=== PATIENT | female | born 1955 | race African-American/Black ===

== ENCOUNTER 2016-08-22 16:24 | Emergency (ER) | payer OTHER ==
[2016-08-22 16:36] VITALS: BP 155/105; PULSE 84; TEMP 97.6; BMI 26.2
[2016-08-22 17:30] LABS: URINE APPEARANCE CLEAR; URINE BILIRUBIN NEGATIVE (NEGATIVE); URINE BLOOD NEGATIVE (NEGATIVE); URINE COLOR LTYELLOW; URINE GLUCOSE (UA) NEGATIVE (NEGATIVE); URINE KETONE NEGATIVE (NEGATIVE); URINE LEUK ESTERASE NEGATIVE (NEGATIVE); URINE NITRITE NEGATIVE (NEGATIVE); URINE PROTEIN NEGATIVE (NEGATIVE); URINE UROBILINOGEN NEGATIVE E.U./dl (0.2-1.0)
--- NOTE | 2016-08-22 17:41 | PDOC ---
History of Present Illness - General Chief Complaint: Injury Stated Complaint: FALL/BACK PAIN Time Seen by Provider: 08/22/16 16:54 History Source: Patient Exam Limitations: No Limitations - History of Present Illness Initial Comments: 08/22/16 17:38 61 yr female with c/o low back coccyx pain to leg after fall 2 weeks ago. Pt states seh went to sit down in her chair at work that had rolled away and pt landed on the floor on her tailbone. Pt denies abd pain, no blood in urine or bowel. Pt taking naprosyn with no relief. Pt denies numbness or tingling states the pain is persistent. Occurred: reports: other (2 weeks ) Severity: reports: moderate Pain Location: reports: back Method of Injury: Yes: fall Past History - Past Medical History Allergies/Adverse Reactions: Allergies Allergy/AdvReac Type Severity Reaction Status Date / Time No Known Allergies Allergy Verified 08/22/16 16:36 Home Medications: Ambulatory Orders Aspirin [ASA -] 81 mg PO DAILY 11/23/14 Naproxen [Naprosyn -] 500 mg PO BID PRN #14 tablet 08/22/16 Oxycodone HCl/Acetaminophen [Percocet 5-325 mg Tablet] 1 tab PO Q6H PRN #10 tablet MDD 4 08/22/16 HTN: Yes (?) - Psycho/Social/Smoking Cessation Hx Anxiety: No Suicidal Ideation: No Smoking Status: No Smoking History: Never smoked Number of Cigarettes Smoked Daily: 0 Hx Alcohol Use: No Drug/Substance Use Hx: No Substance Use Type: None Hx Substance Use Treatment: No Review of Systems - Review of Systems Able to Perform ROS?: Yes Is the patient limited Fijian proficient: No Musculoskeletal: Yes: Symptoms Reported, See HPI *Physical Exam - Vital Signs Last Vital Signs Temp Pulse Resp BP Pulse Ox 97.6 F 84 20 155/105 100 08/22/16 16:34 08/22/16 16:34 08/22/16 16:34 08/22/16 16:34 08/22/16 16:34 - Physical Exam General Appearance: Yes: Nourished, Appropriately Dressed HEENT: positive: EOMI, RAY Neck: positive: Supple. negative: Tender Respiratory/Chest: positive: Lungs Clear, Normal Breath Sounds Cardiovascular: positive: Regular Rhythm, Regular Rate Gastrointestinal/Abdominal: positive: Normal Bowel Sounds, Soft Musculoskeletal: positive: Normal Inspection, Vertebral Tenderness (coccyx ) Integumentary: positive: Normal Color, Dry, Warm. negative: Ecchymosis, Bruising Neurologic: positive: Fully Oriented, Alert, Normal Mood/Affect, Normal Response , Motor Strength 12/10 ED Treatment Course - ADDITIONAL ORDERS Additional order review: Laboratory Results 08/22/16 17:00 Urine Color Ltyellow Urine Appearance Clear Urine pH 7.0 Ur Specific [place] 1.020 Urine Protein Negative Urine Glucose (UA) Negative Urine Ketones Negative Urine Blood Negative Urine Nitrite Negative Urine Bilirubin Negative Urine Urobilinogen Negative Ur Leukocyte Esterase Negative - RADIOLOGY Radiology Studies Ordered: Category Date Time Status COCCYX [RAD] Stat Radiology 08/22/16 17:27 Ordered SACRUM [RAD] Stat Radiology 08/22/16 17:27 Ordered Medical Decision Making - Medical Decision Making 08/22/16 17:40 cc: mechanical fall 2 weeks ago landed on tailbone will get xray and urine 08/22/16 18:37 pt states she has an orthopedist to follow up with urine is negative xray shows constipation, possible coccyx fracture will call pt with official read, pt is aware of plan and agrees with plan of care. all questions asked and answered on discharge. pt stable, ambualtory no distress. *DC/Admit/Observation/Transfer Diagnosis at time of Disposition: Coccyx contusion Qualifiers: Encounter type: initial encounter Qualified Code(s): S30.0XXA - Contusion of lower back and pelvis, initial encounter Constipation Qualifiers: Constipation type: other constipation type Qualified Code(s): K59.09 - Other constipation - Discharge Dispostion Disposition: HOME Condition at time of disposition: Good - Prescriptions Prescriptions: Naproxen [Naprosyn -] 500 mg PO BID PRN #14 tablet PRN Reason: Pain Oxycodone HCl/Acetaminophen [Percocet 5-325 mg Tablet] 1 tab PO Q6H PRN #10 tablet MDD 4 PRN Reason: Severe Pain - Patient Instructions Additional Instructions: follow with the orthopedist this week take percocet for severe pain DO NOT DRIVE, DRINK ALCOHOL OR OPERATE ANY MACHINERY WHILE TAKING THIS MEDICINE take naprosyn for mild to moderate pain apply ice to lower back every 2hrs for 20 minutes Get Dulcolax Laxative (over the counter) for constipation drink pleanty of water , high fiber diet
== END 2016-08-22 19:27 | disposition home or self-care (01) ==
LOC: JERFT 16:24
DX: S30.0XXA Contusion of lower back and pelvis, initial encounter (principal); W07.XXXA Fall from chair, initial encounter; Y93.89 Activity, other specified; Y92.214 College as the place of occurrence of the external cause; Y99.0 Civilian activity done for income or pay
CPT/HCPCS: 72220-TC; 81003; 99281-25

== ENCOUNTER 2016-09-15 05:40 | Day surgery (SDC) | payer OTHER ==
[2016-09-13 15:03] VITALS: BMI 26.4
--- NOTE | 2016-09-15 14:21 | HP ---
Admitting History and Physical - Admission Chief Complaint: Endometrial polyp History of Present Illness: 61 yo Par 4 with endometrial polyp is pre op for D&C Hysteroscopy. History Source: Patient Limitations to Obtaining History: No Limitations - Past Medical History ...Para: 4 - Past Surgical History Past Surgical History: Yes: None - Smoking History Smoking history: Never smoked Have you smoked in the past 12 months: No Aproximately how many cigarettes per day: 0 - Alcohol/Substance Use Hx Alcohol Use: No History of Substance Use: reports: None - Social History Usual Living Arrangement: Yes: With Child History of Recent Travel: No Home Medications - Allergies Allergies/Adverse Reactions: Allergies Allergy/AdvReac Type Severity Reaction Status Date / Time No Known Allergies Allergy Verified 09/15/16 13:48 - Home Medications Home Medications: Ambulatory Orders Aspirin [ASA -] 81 mg PO DAILY 11/23/14 Naproxen [Naprosyn -] 500 mg PO BID PRN #14 tablet 08/22/16 Oxycodone HCl/Acetaminophen [Percocet 5-325 mg Tablet] 1 tab PO Q6H PRN #10 tablet MDD 4 08/22/16 Cholecalciferol (Vitamin D3) [Vitamin D3 -] 1,000 unit PO DAILY 09/13/16 Multivit-Min/Iron Fum/Folic AC [Hjfmk-Xbkxvdy-Zhhgikgx Tablet] 1 each PO DAILY 09/13/16 Family Disease History - Family Disease History Family History: Unremarkable Review of Systems - Review of Systems Constitutional: reports: No Symptoms Eyes: reports: No Symptoms HENT: reports: No Symptoms Neck: reports: No Symptoms Cardiovascular: reports: No Symptoms Respiratory: reports: No Symptoms Gastrointestinal: reports: No Symptoms Genitourinary: reports: No Symptoms Breasts: reports: No Symptoms Reported Musculoskeletal: reports: No Symptoms Integumentary: reports: No Symptoms Neurological: reports: No Symptoms Endocrine: reports: No Symptoms Hematology/Lymphatic: reports: No Symptoms Psychiatric: reports: No Symptoms Pain Intensity: 0 Physical Examination Vital Signs: Vital Signs Temperature 97.5 F L 09/15/16 13:50 Pulse Rate 88 09/15/16 13:50 Respiratory Rate 16 09/15/16 13:50 Blood Pressure 126/78 09/15/16 13:50 O2 Sat by Pulse Oximetry (%) 99 09/15/16 13:50 Constitutional: Yes: Well Nourished HENT: Yes: Atraumatic Neck: Yes: Supple, Trachea Midline Cardiovascular: Yes: Regular Rate and Rhythm Respiratory: Yes: Regular, CTA Bilaterally Gastrointestinal: Yes: Normal Bowel Sounds Neurological: Yes: Alert, Oriented ...Motor Strength: WNL Psychiatric: Yes: Alert, Oriented Problem List - Problems (1) Endometrial polyp Code(s): N84.0 - POLYP OF CORPUS UTERI Assessment/Plan Endometrial polyp Pre op for D&C Hysteroscopy Consent signed Anesthesia to see Pt
[2016-09-15] MEDS ORDERED: KETOROLAC TROMETHAMINE 30 MG/1 ML VIAL ONE (14:41)
[2016-09-15] MEDS ORDERED: DEXAMETHASONE SOD PHOSPHATE 4 MG/1 ML VIAL ONE (14:41)
[2016-09-15] MEDS ORDERED: MIDAZOLAM HCL 2 MG/2 ML SINGLE DOSE VIAL ONE (14:41)
--- NOTE | 2016-09-15 15:40 | OP ---
Operative Note - Note: Operative Date: 09/15/16 Pre-Operative Diagnosis: Endometrial polyp Operation: D&C Hysteroscopy Findings: Submucosal myoma Post-Operative Diagnosis: Same as Pre-op Surgeon: Hannah Jaimes Anesthesia: General Specimens Removed: Endometrial curettings Estimated Blood Loss (mls): 5
[2016-09-15] MEDS ORDERED: oxyCODONE HCL 5 MG TABLET PO PRN ×2 (15:45)
[2016-09-15] MEDS ORDERED: PROMETHAZINE HCL 25 MG/1 ML VIAL IVPUSH PRN (15:45)
[2016-09-15] MEDS ORDERED: LACTATED RINGERS SOLUTION 1,000 ML IV SCH (15:45)
[2016-09-15] MEDS ORDERED: ONDANSETRON 4 MG/2 ML VIAL IVPUSH PRN (15:45)
[2016-09-15 17:21] VITALS: TEMP 97.8
[2016-09-15 18:18] VITALS: BP 120/80; PULSE 73
--- NOTE | 2016-09-17 09:50 | PATH ---
Surgical Pathology Report Patient Name: YA BREWSTER [facility]. Rec. #: [id number] /Age/Gender: 1955 (Age: 61) / F Account: [id number] Location: [facility] Taken: 09/15/2016 Received: 09/16/2016 Reported: 09/17/2016 Physicians: Hannah Jaimes M.D. Specimen(s) Received ENDOMETRIAL CURETTINGS Clinical History Endometrial polyp Final Diagnosis ENDOMETRIUM, CURETTING: SCANT INACTIVE ENDOMETRIUM, SCANT BENIGN SQUAMOUS EPITHELIUM, AND CLOTTED BLOOD. NO ENDOMETRIAL HYPERPLASIA OR CARCINOMA IDENTIFIED. Electronically Signed Lion Shelton M.D. Gross Description Received in formalin labelled "endometrial curetting" is a 1 x 1 x 0.3 cm aggregate of hemorrhagic material. Totally submitted in one cassette [facility]/09/16/2016 [facility]/09/16/2016
--- NOTE | 2016-10-19 21:18 | OP ---
DATE OF OPERATION: 09/15/2016 PREOPERATIVE DIAGNOSIS: Endometrial polyp. POSTOPERATIVE DIAGNOSIS: Submucosal myoma. SURGEON: Hannah Jaimes MD ANESTHESIA: General. PROCEDURE: Dilation and curettage, hysteroscopy. ESTIMATED BLOOD LOSS: Less than 5 mL. PROCEDURE: The patient was taken to the operating room, where general anesthesia was administered. Patient was then placed in lithotomy position. She was then prepped and draped in proper sterile fashion. A weighted speculum was placed in the vagina. The anterior lip of the cervix was grasped with a single-tooth tenaculum. Then a 5-mm hysteroscope was then gently introduced into the uterine cavity. There was no polyp noted but there was a submucosal myoma noted in the cavity. Then sharp curettage was then performed. Upon completion of the procedure, the instruments were removed. The patient was taken out of lithotomy position. She was taken to PACU in stable condition. PATHOLOGY: Endometrial curetting. Sheree TAYLOR/[id number] MTDD
== END 2016-09-15 18:48 | disposition home or self-care (01) ==
LOC: JASU-SURG 05:40
PROVIDERS: ATTEND Obstetrics & Gynecology
PROC: 0UDB8ZX Extraction of Endometrium, Via Natural or Artificial Opening Endoscopic, Diagnostic (ICD-10-PCS; principal; 2016-09-15 15:00)
DX: D25.0 Submucous leiomyoma of uterus (principal)
CPT/HCPCS: 88305-TC; 94760

== ENCOUNTER 2016-09-20 06:40 | Emergency (ER) | payer OTHER ==
[2016-09-20 07:01] VITALS: TEMP 97.5; BMI 26.2
--- NOTE | 2016-09-20 07:19 | PDOC ---
History of Present Illness - General Chief Complaint: Pain, Acute Stated Complaint: CRAMPING IN LEGS Time Seen by Provider: 09/20/16 07:18 History Source: Patient Exam Limitations: No Limitations - History of Present Illness Initial Comments: 09/20/16 07:19 CHIEF COMPLAINT: Cramping HISTORY OF PRESENT ILLNESS: This is a 61-year-old female with a history of D&C hysteroscopy on 09/[address] Jaimes who presents complaining of cramping in both of her legs, right more than left. She reports she has been having this cramping since her surgery. It is intermittent, not relieved or exacerbated by walking or rest, and seems to last for a few minutes at a time. She describes the pain as severe. She denies chest pain, shortness of breath, fevers/chills, or any other symptoms. She took two x ASA 81mg today with some relief. Vital signs on arrival are unremarkable. PCP is Dr. Gillette. REVIEW OF SYSTEMS: GENERAL/CONSTITUTIONAL: No fever or chills. No weakness. No weight change. CARDIOVASCULAR: No chest pain or palpitations. RESPIRATORY: No cough, wheezing, or shortness of breath. GASTROINTESTINAL: No nausea, vomiting, diarrhea or constipation. GENITOURINARY: No dysuria, frequency, or change in urination. MUSCULOSKELETAL: See HPI. SKIN: No rash or easy bruising. NEUROLOGIC: No headache, vertigo, loss of consciousness, or loss of sensation. PSYCHIATRIC: No depression or anxiety. ENDOCRINE: No increased thirst. No abnormal weight change. HEMATOLOGIC/LYMPHATIC: No anemia, easy bleeding, or history of blood clots. ALLERGIC/IMMUNOLOGIC: No hives or skin allergy. No latex allergy. PHYSICAL EXAM: GENERAL: The patient is awake, alert, and fully oriented, in no acute distress. ENT: Pupils equal, round and reactive to light, extraocular movements intact, sclera anicteric, conjunctiva clear. Neck supple. LUNGS: Clear to auscultation bilaterally. Normal excursion. No respiratory distress or use of accessory muscles. CV: RRR, S1/S2, no MRG. Cap refill < 2 sec. ABDOMEN: Soft, non-distended, non-tender. EXTREMITIES: Normal range of motion, no edema. Right calf tenderness, worse with flexion. NEUROLOGICAL: Normal speech, normal gait. CN II-XII grossly intact. PSYCH: Normal mood, normal affect. SKIN: Warm, dry, normal turgor, no rashes or lesions noted. Past History - Past Medical History Allergies/Adverse Reactions: Allergies Allergy/AdvReac Type Severity Reaction Status Date / Time No Known Allergies Allergy Verified 09/20/16 06:46 Home Medications: Ambulatory Orders Aspirin [ASA -] 81 mg PO DAILY 11/23/14 Naproxen [Naprosyn -] 500 mg PO BID PRN #14 tablet 08/22/16 Oxycodone HCl/Acetaminophen [Percocet 5-325 mg Tablet] 1 tab PO Q6H PRN #10 tablet MDD 4 08/22/16 Cholecalciferol (Vitamin D3) [Vitamin D3 -] 1,000 unit PO DAILY 09/13/16 Multivit-Min/Iron Fum/Folic AC [Qlqmz-Rpmvpkp-Lohwgrft Tablet] 1 each PO DAILY 09/13/16 Ibuprofen [Motrin -] 600 mg PO QID PRN #15 tablet 09/20/16 HTN: Yes (?) Thyroid Disease: No - Psycho/Social/Smoking Cessation Hx Anxiety: No Suicidal Ideation: No Smoking Status: No Smoking History: Never smoked Have you smoked in the past 12 months: No Number of Cigarettes Smoked Daily: 0 Information on smoking cessation initiated: No Hx Alcohol Use: No Drug/Substance Use Hx: No Substance Use Type: None Hx Substance Use Treatment: No *Physical Exam - Vital Signs Last Vital Signs Temp Pulse Resp BP Pulse Ox 97.5 F L 79 14 137/68 98 09/20/16 06:46 09/20/16 06:46 09/20/16 06:46 09/20/16 06:46 09/20/16 06:46 ED Treatment Course - LABORATORY CBC & Chemistry Diagram: 09/20/16 07:50 09/20/16 07:30 Medical Decision Making - Medical Decision Making 09/20/16 07:51 A/P: 61 year old female with leg cramping and right calf tenderness s/p surgery on 09/15. 1. Labs including CBC, comp, Mg 2. Duplex LE u/s to r/o DVT 3. Patient declines analgesia at this time 09/20/16 09:38 Labs including Mg are all within normal limits. U/s negative for DVT. Patient agrees to follow up with Dr. Gillette for further evaluation. *DC/Admit/Observation/Transfer Diagnosis at time of Disposition: Leg cramps Qualifiers: Laterality: bilateral Qualified Code(s): R25.2 - Cramp and spasm - Discharge Dispostion Admit: No - Prescriptions Prescriptions: Ibuprofen [Motrin -] 600 mg PO QID PRN #15 tablet PRN Reason: Pain - Referrals Referrals: Jayce Gillette MD [Primary Care Provider] - 3 days - Patient Instructions Printed Discharge Instructions: DI for Nocturnal Leg Cramps Additional Instructions: -You were seen today for leg cramps. -Your blood work is all normal. -Your leg ultrasounds are also normal -Take ibuprofen as prescribed for pain -Please follow up with Dr. Gillette for further evaluation -Return here for any new or worsening symptoms
[2016-09-20 07:58] LABS: BASOPHIL 0.9 % (0-2.0); EOSINOPHIL 2.8 % (0-4.5); MCH 29.1 pg (25.7-33.7); MCHC 33.3 g/dl (32.0-36.0); MEAN CELL VOLUME 87.4 fl (80-96); NEUTROPHILS 52.1 % (42.8-82.8); PLATELET COUNT 212 K/MM3 (134-434); RDW 13.8 % (11.6-15.6); WHITE BLOOD COUNT 6.4 K/mm3 (4.0-10.0)
[2016-09-20 08:27] LABS: ALBUMIN 3.5 g/dl (3.4-5.0); ALK PHOS 75 U/L (45-117); ANION GAP 8 (8-16); BILIRUBIN,TOTAL 0.3 mg/dL (0.2-1.0); CALCIUM 8.8 mg/dL (8.5-10.1); CO2 30 mmol/L (21-32); CREATININE 0.7 mg/dL (0.55-1.02); GLUCOSE,RANDOM 114 mg/dL (74-106); MAGNESIUM 2.4 mg/dL (1.8-2.4); SGOT/AST 14 U/L (15-37); SGPT/ALT 17 U/L (12-78); TOT PROT 7.2 g/dl (6.4-8.2)
[2016-09-20 10:11] VITALS: BP 129/78; PULSE 72
== END 2016-09-20 10:15 | disposition home or self-care (01) ==
LOC: JER 06:40
DX: R25.2 Cramp and spasm (principal); Z98.890 Other specified postprocedural states
CPT/HCPCS: 36415; 80053; 83735; 85025; 93970-TC; 99282-25

== ENCOUNTER → 2016-11-13 | Emergency (ER) | payer OTHER ==
[~2016-11-13] MED LIST: ASPIRIN 81 MG CHEWABLE TABLETS ONE; ASPIRIN 81 MG CHEWABLE TABLETS PO ONE; DEXTROSE 50%-WATER 50 ML VIAL IVPUSH ONE
[2016-11-13 01:33] VITALS: BMI 26.2
--- NOTE | 2016-11-13 01:52 | PDOC ---
History of Present Illness - General History Source: Patient Exam Limitations: No Limitations - History of Present Illness Initial Comments: 11/13/16 02:11 The patient is a 61 year old female with a significant past medical history of hypertension (diet controlled), presenting to the Emergency Department with chest discomfort. The patient reports that she started experiencing chest discomfort th night, and admits that it has become worse over the past 24 hours. She describes the chest discomfort as at the middle of her chest. The discomfort is not exacerbated by meals. The patient admits to recently having an echocardiogram, and is going for a stress test soon. The patient denies palpitations, diaphoresis, and shortness of breath. Patient denies cough, fever, and chills. Patient denies nausea, vomiting, and diarrhea. Patient denies neck pain, or back pain. <Olga Mendez - Last Filed: 11/13/16 02:11> <Zohreh Monte - Last Filed: 11/13/16 05:01> - General Stated Complaint: CHEST DISCOMFORT Time Seen by Provider: 11/13/16 01:21 Past History <Olga Mendez - Last Filed: 11/13/16 02:11> - Past Medical History HTN: Yes (?) Thyroid Disease: No - Psycho/Social/Smoking Cessation Hx Anxiety: No Suicidal Ideation: No Smoking Status: No Smoking History: Unknown if ever smoked Have you smoked in the past 12 months: No Number of Cigarettes Smoked Daily: 0 Hx Alcohol Use: No Drug/Substance Use Hx: No Substance Use Type: None Hx Substance Use Treatment: No <Zohreh Monte - Last Filed: 11/13/16 05:01> - Past Medical History Allergies/Adverse Reactions: Allergies Allergy/AdvReac Type Severity Reaction Status Date / Time No Known Allergies Allergy Verified 09/20/16 06:46 Home Medications: Ambulatory Orders Aspirin [ASA -] 81 mg PO DAILY 11/23/14 Naproxen [Naprosyn -] 500 mg PO BID PRN #14 tablet 08/22/16 Oxycodone HCl/Acetaminophen [Percocet 5-325 mg Tablet] 1 tab PO Q6H PRN #10 tablet MDD 4 08/22/16 Cholecalciferol (Vitamin D3) [Vitamin D3 -] 1,000 unit PO DAILY 09/13/16 Multivit-Min/Iron Fum/Folic AC [Myhbl-Vamvttj-Zmcaexbu Tablet] 1 each PO DAILY 09/13/16 Ibuprofen [Motrin -] 600 mg PO QID PRN #15 tablet 09/20/16 Review of Systems - Review of Systems Able to Perform ROS?: Yes Comments:: 11/13/16 02:11 GENERAL/CONSTITUTIONAL: No fever or chills. No weakness. HEAD, EYES, EARS, NOSE AND THROAT: No change in vision. No ear pain or discharge. No sore throat. CARDIOVASCULAR: + chest discomfort. No shortness of breath. RESPIRATORY: No cough, wheezing, or hemoptysis. GASTROINTESTINAL: No nausea, vomiting, diarrhea or constipation. GENITOURINARY: No dysuria, frequency, or change in urination. MUSCULOSKELETAL: No joint or muscle swelling or pain. No neck or back pain. SKIN: No rash NEUROLOGIC: No headache, vertigo, loss of consciousness, or change in strength/ sensation. ENDOCRINE: No increased thirst. No abnormal weight change. HEMATOLOGIC/LYMPHATIC: No anemia, easy bleeding, or history of blood clots. ALLERGIC/IMMUNOLOGIC: No hives or skin allergy. <Olga Mendez - Last Filed: 11/13/16 02:11> *Physical Exam - Vital Signs Last Vital Signs Temp Pulse Resp BP Pulse Ox 98.6 F 90 22 130/82 97 11/13/16 01:29 11/13/16 01:29 11/13/16 01:29 11/13/16 01:29 11/13/16 01:29 - Physical Exam Comments: 11/13/16 02:11 GENERAL: Awake, alert, and fully oriented, in no acute distress HEAD: No signs of trauma EYES: PERRLA, EOMI, sclera anicteric, conjunctiva clear ENT: Auricles normal inspection, hearing grossly normal, nares patent, oropharynx clear without exudates. Moist mucosa NECK: Normal ROM, supple, no lymphadenopathy, JVD, or masses LUNGS: Breath sounds equal, clear to auscultation bilaterally. No wheezes, and no crackles HEART: Regular rate and rhythm, normal S1 and S2, no murmurs, rubs or gallops ABDOMEN: Soft, nontender, normoactive bowel sounds. No guarding, no rebound. No masses EXTREMITIES: Normal range of motion, no edema. No clubbing or cyanosis. No cords, erythema, or tenderness NEUROLOGICAL: Cranial nerves II through XII grossly intact. Normal speech, normal gait SKIN: Warm, Dry, normal turgor, no rashes or lesions noted. <Olga Mendez - Last Filed: 11/13/16 02:11> - Vital Signs Last Vital Signs Temp Pulse Resp BP Pulse Ox 98.6 F 90 22 130/82 97 11/13/16 01:29 11/13/16 01:29 11/13/16 01:29 11/13/16 01:29 11/13/16 01:29 <Zohreh Monte - Last Filed: 11/13/16 05:01> ED Treatment Course - Medications Given in the ED: ED Medications Discontinued Medications Generic Name Dose Route Start Last Admin Trade Name Ofelia PRN Reason Stop Dose Admin Dextrose 50 ml 11/13/16 01:22 11/13/16 01:57 D50w (Vial) - IVPUSH 11/13/16 01:23 Not Given NOW ONE Dextrose 50 ml 11/13/16 01:22 11/13/16 01:57 D50w (Vial) - IVPUSH 11/13/16 01:23 Not Given NOW ONE <Olga Mendez - Last Filed: 11/13/16 02:11> - LABORATORY CBC & Chemistry Diagram: 11/13/16 02:42 11/13/16 02:42 <Zohreh Monte - Last Filed: 11/13/16 05:01> *DC/Admit/Observation/Transfer - Attestations Scribe Attestion: 11/13/16 02:12 Documentation prepared by Olga Mendez, acting as ophthalmic medical technologist for Zohreh Monte MD. <Olga Mendez - Last Filed: 11/13/16 02:11> - Discharge Dispostion Admit: No <Zohreh Monte - Last Filed: 11/13/16 05:01> Diagnosis at time of Disposition: Chest pain - Discharge Dispostion Disposition: HOME Condition at time of disposition: Stable - Referrals Referrals: Jayce Gillette MD [Primary Care Provider] - - Patient Instructions Printed Discharge Instructions: DI for Atypical Chest Pain
[2016-11-13 02:54] LABS: BASOPHIL 0.5 % (0-2.0); EOSINOPHIL 1.8 % (0-4.5); MCHC 33.4 g/dl (32.0-36.0); MEAN PLT VOLUME 8.6 fl (7.5-11.1); NEUTROPHILS 55.2 % (42.8-82.8); PLATELET COUNT 228 K/MM3 (134-434); RDW 13.9 % (11.6-15.6); WHITE BLOOD COUNT 7.6 K/mm3 (4.0-10.0)
[2016-11-13 03:08] LABS: INR 1.04 (0.82-1.09); PROTHROMBIN TIME (PATIENT) 11.5 SEC (9.98-11.88)
[2016-11-13 03:19] LABS: ALBUMIN 3.5 g/dl (3.4-5.0); ANION GAP 10 (8-16); BILIRUBIN,TOTAL 0.2 mg/dL (0.2-1.0); CALCIUM 8.7 mg/dL (8.5-10.1); CO2 28 mmol/L (21-32); COCKROFT - GAULT 95.4805; CREATININE 0.7 mg/dL (0.55-1.02); GLUCOSE,RANDOM 120 mg/dL (74-106); SGOT/AST 10 U/L (15-37); SGPT/ALT 18 U/L (12-78); TOT PROT 7.3 g/dl (6.4-8.2)
[2016-11-13 03:21] LABS: ALK PHOS 86 U/L (45-117); TROPONIN I < 0.02 ng/ml (0.00-0.05)
[2016-11-13 05:17] VITALS: BP 129/79; PULSE 76; TEMP 98.9
--- NOTE | 2016-11-13 16:19 | EKG ---
Test Reason : Blood Pressure : / mmHG Vent. Rate : 090 BPM Atrial Rate : 090 BPM P-R Int : 196 ms QRS Dur : 084 ms QT Int : 350 ms P-R-T Axes : 065 016 047 degrees QTc Int : 428 ms SINUS RHYTHM WITH PREMATURE ATRIAL COMPLEXES WITH ABERRANT CONDUCTION POSSIBLE ANTERIOR INFARCT , AGE UNDETERMINED ABNORMAL ECG WHEN COMPARED WITH ECG OF 23-NOV-2014 07:50, ABERRANT CONDUCTION IS NOW PRESENT Confirmed by ANU ALBERTS, ANG ([id number]) on 11/13/2016 4:19:39 PM Referred By: Confirmed By:ANG BRENNAN MD
== END | disposition home or self-care (01) ==
LOC: JER 00:58
DX: R07.89 Other chest pain (principal); I10 Essential (primary) hypertension
CPT/HCPCS: 36415; 71010-TC; 80053; 82550; 84484; 85025; 85610; 93005; 93010; 99282-25

== ENCOUNTER 2017-02-02 14:02 | Emergency (ER) | payer OTHER ==
[2017-02-02 14:15] VITALS: BP 154/89; PULSE 76; TEMP 97.6; BMI 25.7
[2017-02-02] MEDS ORDERED: KETOROLAC TROMETHAMINE 60 MG/2 ML VIAL IM ONE (15:04)
[2017-02-02] MEDS ORDERED: KETOROLAC TROMETHAMINE 60 MG/2 ML VIAL ONE (15:06)
--- NOTE | 2017-02-02 15:33 | PDOC ---
History of Present Illness - General Chief Complaint: Pain Stated Complaint: NECK PAIN,JOINT PAIN Time Seen by Provider: 02/02/17 14:27 History Source: Patient Exam Limitations: No Limitations - History of Present Illness Initial Comments: 02/02/17 15:10 Patient is a 62-year-old female with history of low back injury status post fall. Patient was at work in August got up from a chair when she went to sit back down the chair rolled away and she fell on her back. Diagnosed with herniated disc to lower back. Presents emergency department today with bilateral lateral neck pain which started 2 days ago woke up with pain. Patient reports numbness and tingling to bilateral hands which has been since August. Patient is ambulatory to ER. Is currently taking diclofenac and Tinazidine. She denies any chest pain or shortness of breath, afebrile, denies any new trauma. Past Medical History: Denies. Allergies: No known allergies Medications: Diclofenac, Tinazidine. Family History: Non-contributory Social History: Denies smoking, alcohol use, or IVDU Review of Systems GENERAL/CONSTITUTIONAL: No fever or chills. No weakness. No weight change. HEAD, EYES, EARS, NOSE AND THROAT: No change in vision. No ear pain or discharge. No sore throat. CARDIOVASCULAR: No chest pain or shortness of breath. RESPIRATORY: No cough, wheezing, or hemoptysis. GASTROINTESTINAL: No nausea, vomiting, diarrhea or constipation. No rectal bleeding. GENITOURINARY: No dysuria, frequency, or change in urination. MUSCULOSKELETAL: No joint or muscle swelling or pain. Bilateral lateral neck pain, chronic back pain. SKIN: No rash or easy bruising. NEUROLOGIC: No headache, vertigo, loss of consciousness, or loss of sensation. ENDOCRINE: No increased thirst. No abnormal weight change. HEMATOLOGIC/LYMPHATIC: No anemia, easy bleeding, or history of blood clots. ALLERGIC/IMMUNOLOGIC: No hives or skin allergy. No latex allergy. Physical Exam: GENERAL: The patient is awake, alert, and fully oriented, in no acute distress. HEAD: Normal with no signs of trauma. EYES: Pupils equal, round and reactive to light, extraocular movements intact, sclera anicteric, conjunctiva clear. ENT: Ears normal, nares patent, oropharynx clear without exudates. Moist mucous membranes. No uvula deviation NECK: Normal range of motion, supple without lymphadenopathy, JVD, or masses. LUNGS: Breath sounds equal, clear to auscultation bilaterally. No wheezes, and no crackles. HEART: Regular rate and rhythm, normal S1 and S2 without murmur, rub or gallop. ABDOMEN: Soft, nontender, normoactive bowel sounds. No guarding, no rebound. No masses. No bruising or abrasions MUSCULOSKELETAL: Normal range of motion, no edema. No clubbing or cyanosis. No cords, erythema, or tenderness. No CVA Tenderness with fist palpation. No spinal point tenderness, pain, tight muscles to bilateral neck. NEUROLOGICAL: Cranial nerves II through XII grossly intact. Normal speech, normal gait. SKIN: Warm, Dry, normal turgor, no rashes or lesions noted. Past History - Past Medical History Allergies/Adverse Reactions: Allergies Allergy/AdvReac Type Severity Reaction Status Date / Time No Known Allergies Allergy Verified 02/02/17 14:15 Home Medications: Ambulatory Orders Aspirin [ASA -] 81 mg PO DAILY 11/23/14 Diclofenac Sodium 75 mg PO BID 02/02/17 Tizanidine HCl [Zanaflex] 4 mg PO BID 02/02/17 HTN: No (DENIES) Thyroid Disease: No - Psycho/Social/Smoking Cessation Hx Anxiety: No Suicidal Ideation: No Smoking Status: No Smoking History: Never smoked Have you smoked in the past 12 months: No Number of Cigarettes Smoked Daily: 0 Hx Alcohol Use: No Drug/Substance Use Hx: No Substance Use Type: None Hx Substance Use Treatment: No *Physical Exam - Vital Signs Last Vital Signs Temp Pulse Resp BP Pulse Ox 97.6 F 76 20 154/89 100 02/02/17 14:11 02/02/17 14:11 02/02/17 14:11 02/02/17 14:11 02/02/17 14:11 ED Treatment Course - RADIOLOGY Radiology Studies Ordered: Category Date Time Status SPINE-CERVICAL [RAD] Stat Radiology 02/02/17 15:04 Ordered Medical Decision Making - Medical Decision Making 02/02/17 15:33 A/P: Patient with bilateral lateral neck pain. Patient denies any new recent trauma, states that she had minor pain after falling in August but woke up 2 days ago with increased pain. Patient has persistent bilateral numbness and tingling to hands however spoke to patient's primary care doctor Dr. Santamaria who assessed her chart and states that she never had workup performed on neck. Dr. Santamaria stated that patient is new to his practice has only been seen twice and it does not recollect speaking to her regards to neck pain. Patient has been on diclofenac without resolve. Discussed with Dr. blake of care , will perform x-rays in ER, Toradol 60 mg IM. Follow-up on Tuesday at 9:30 AM for further evaluation 02/02/17 15:57 Xray Demonstrated a right cervical rib at C7. Scattered Dr. Santamaria who will possibly order MRI if pain persists. Patient to be discharged home on anti- inflammatories and current pain regimen. She verbalized understanding. I discussed the physical exam findings, ancillary test results and final diagnoses with the patient. I answered all of the patient's questions. The patient was satisfied with the care received and felt comfortable with the discharge plan and treatment plan. The patient sita follow-up and will return to the Emergency Department with any new, persistent or worsening symptoms. 02/02/17 17:07 *DC/Admit/Observation/Transfer Diagnosis at time of Disposition: Neck pain - Discharge Dispostion Disposition: HOME Condition at time of disposition: Stable Admit: No - Referrals Referrals: Mayito Santamaria [Other] (9:00 Am on Tuesday. ) - Patient Instructions Printed Discharge Instructions: Neck Pain (Alternative Therapy) Additional Instructions: A copy of your xray has been given to you, please follow-up with your doctor Dr. Santamaria on Tuesday at 9 AM. Continue current medications as prescribed for pain.
== END 2017-02-02 16:25 | disposition home or self-care (01) ==
LOC: JERFT 14:02
PROC: 3E0233Z Introduction of Anti-inflammatory into Muscle, Percutaneous Approach (ICD-10-PCS; principal; 2017-02-02)
DX: M54.2 Cervicalgia (principal)
CPT/HCPCS: 72050-TC; 99281-25

== ENCOUNTER 2017-03-19 19:08 | Observation (INO) | payer OTHER ==
--- NOTE | 2017-03-19 19:19 | PDOC ---
History of Present Illness - General Stated Complaint: FODD IN THROAT Time Seen by Provider: 03/19/17 19:18 - History of Present Illness Initial Comments: 03/19/17 19:54 62F presenting with sensation of something stuck in her throat. Pt reports choking on the shell of shrimp 45 minutes ago. She coughed up some of it, but now feels a lump in her throat. She reports forcing herself to vomit, but it did not relieve her feeling. She denies the need to cough, any pain, or SOB. 03/19/17 20:01 Past History - Past Medical History Allergies/Adverse Reactions: Allergies Allergy/AdvReac Type Severity Reaction Status Date / Time No Known Allergies Allergy Verified 02/02/17 14:15 Home Medications: Ambulatory Orders Aspirin [ASA -] 81 mg PO DAILY 11/23/14 Diclofenac Sodium 75 mg PO BID 02/02/17 Tizanidine HCl [Zanaflex] 4 mg PO BID 02/02/17 HTN: No (DENIES) Thyroid Disease: No Comment:: 03/19/17 19:57 PMH: kidney cyst, injury s/p fall PSH: none Meds: diclofenac, tizanidine Allergies: NKDA Social Hx: denies toxic habits - Psycho/Social/Smoking Cessation Hx Anxiety: No Suicidal Ideation: No Smoking Status: No Smoking History: Never smoked Have you smoked in the past 12 months: No Number of Cigarettes Smoked Daily: 0 Hx Alcohol Use: No Drug/Substance Use Hx: No Substance Use Type: None Hx Substance Use Treatment: No Review of Systems - Review of Systems Comments:: 03/19/17 19:58 GENERAL: No fever, chills, night sweats, or weakness. HEAD, EYES, EARS, NOSE AND THROAT: +feeling of something stuck in throat CARDIOVASCULAR: No chest pain or palpitations RESPIRATORY: No cough, wheezing, or hemoptysis. GASTROINTESTINAL: No nausea, diarrhea, constipation, or blood in the stool. GENITOURINARY: No dysuria, frequency, or urgency MUSCULOSKELETAL: No joint or muscle swelling or pain. SKIN: No rashes or pruritis ENDOCRINE: No increased thirst. No abnormal weight change NEUROLOGIC: No headache, dizziness, loss of consciousness, or change in strength /sensation. *Physical Exam - Physical Exam Comments: 03/19/17 19:59 GENERAL: Awake, alert, and fully oriented, in mild distress HEAD: normocephalic, atraumatic HEENT: PERRLA, EOMI, oropharynx difficult to visualize due to large tongue, but no foreign bodies visible NECK: Normal ROM, supple, no lymphadenopathy, JVD, or masses HEART: Regular rate and rhythm, normal S1 and S2, no murmurs, rubs or gallops, peripheral pulses normal and equal bilaterally. LUNGS: CTAB, no wheezing, no rales ABDOMEN: Soft, nontender, nondistended, normoactive bowel sounds. No guarding, no rebound. No masses EXTREMITIES: Normal range of motion, no edema. SKIN: Warm, dry, no rashes or lesions noted. NEUROLOGICAL: Cranial nerves II through XII grossly intact. Normal speech, normal gait, no focal sensorimotor deficits ED Treatment Course - LABORATORY CBC & Chemistry Diagram: 03/19/17 20:30 03/19/17 20:30 Medical Decision Making - Medical Decision Making 03/19/17 20:01 03/19/17 20:02 62F presenting with sensation of something stuck in her throat. differential includes foreign body vs. oropharynx irritation. 03/19/17 20:05 *DC/Admit/Observation/Transfer Diagnosis at time of Disposition: Throat swelling - Discharge Dispostion Condition at time of disposition: Stable Admit: Yes Decision to Admit order Date/Time: 03/19/17 23:10 - Attestations Physician Attestion: 03/19/17 23:11 I, Dr. Bethel Taylor, attest that this document has been prepared under my direction and personally reviewed by me in its entirety. I further attest, that it accurately reflects all work, treatment, procedures and medical decision -making performed by me.
--- NOTE | 2017-03-19 19:22 | PDOC ---
Attending Attestation - Resident Resident Name: FrankmichaelBethel - ED Attending Attestation I have performed the following: I have examined & evaluated the patient, The case was reviewed & discussed with the resident, I agree w/resident's findings & plan, Exceptions are as noted - HPI HPI: 62 yo F presents with FB sensation to throat. She states that before the symptoms started, she was eating a piece of shrimp. She states that she forced herself to vomit to try to remove it, which did not help. She has been spitting up phlegm in the ED. She notes changes to her voice due to the sensation in her throat. - Physicial Exam PE: GENERAL: Awake, alert, and fully oriented, in no acute distress HEAD: No signs of trauma EYES: PERRLA, EOMI, sclera anicteric, conjunctiva clear ENT: Auricles normal inspection, hearing grossly normal, nares patent, oropharynx clear without exudates. Moist mucosa. +Muffling of the voice. NECK: Normal ROM, supple, no lymphadenopathy, JVD, or masses LUNGS: Breath sounds equal, clear to auscultation bilaterally. No wheezes, and no crackles HEART: Regular rate and rhythm, normal S1 and S2, no murmurs, rubs or gallops ABDOMEN: Soft, nontender, normoactive bowel sounds. No guarding, no rebound. No masses EXTREMITIES: Normal range of motion, no edema. No clubbing or cyanosis. No cords, erythema, or tenderness NEUROLOGICAL: Cranial nerves II through XII grossly intact. Normal speech, normal gait SKIN: Warm, Dry, normal turgor, no rashes or lesions noted. - Medical Decision Making 03/19/17 21:14 Difficult to visualize the oropharynx due to patient anatomy. Therefore she was pretreated with viscous lidocaine swish and swallow, as well as cetacaine topically. Attempted to visualize the oropharynx with glidescope, noted that the uvula appeared enlarged. This may possibly be angioedema (however, no known allergens, no TIKA-inhibitors), or may be related to trauma when she self- induced her vomiting. Will treat with steroids. Will obtain CT soft tissue neck to further evaluate.
[2017-03-19 19:27] VITALS: BMI 25.7
[2017-03-19] MEDS ORDERED: MAG HYDROX/AL HYDROX/SIMETH 30 ML UNIT-DOSE CUP PO ONE (19:51)
[2017-03-19] MEDS ORDERED: LIDOCAINE VISCOUS 2% ORAL/TOP 20 ML UNIT-DOSE CUP MM ONE (19:51)
[2017-03-19] MEDS ORDERED: MAG HYDROX/AL HYDROX/SIMETH 30 ML UNIT-DOSE CUP ONE (19:54)
[2017-03-19] MEDS ORDERED: DEXAMETHASONE SOD PHOSPHATE 10 MG/1 ML VIAL IVPB ONE (20:23)
[2017-03-19] MEDS ORDERED: DEXAMETHASONE SOD PHOSPHATE 10 MG/1 ML VIAL ONE (20:32)
[2017-03-19 20:35] LABS: BASOPHIL 0.8 % (0-2.0); MCH 29.1 pg (25.7-33.7); MCHC 33.2 g/dl (32.0-36.0); MEAN CELL VOLUME 87.6 fl (80-96); MEAN PLT VOLUME 8.5 fl (7.5-11.1); PLATELET COUNT 235 K/MM3 (134-434); WHITE BLOOD COUNT 8.1 K/mm3 (4.0-10.0)
[2017-03-19 20:59] LABS: ANION GAP 5 (8-16); CALCIUM 9.4 mg/dL (8.5-10.1); CO2 31 mmol/L (21-32); CREATININE 0.9 mg/dL (0.55-1.02); GLUCOSE,RANDOM 128 mg/dL (74-106)
[2017-03-19] MEDS ORDERED: ONDANSETRON 4 MG/2 ML VIAL IVPB PRN (23:43)
--- NOTE | 2017-03-19 23:43 | HP ---
Admitting History and Physical - Admission Chief Complaint: FB sensation in throat History of Present Illness: 62 yo f w no significant pmhx presents to the ER for evaluation of FB sensation in throat. She reports around 530P today that she ate a piece of shrimp which got stuck in her throat. she tried to vomit it up but had problems evacuating it. she reports some difficulty breathing at that time. She reports still feeling like something is in her throat. She denies allergies to shrimp. She denies cough, wheezing, cp, heart palps, f/c/d/n. She denies numbness, tingling. She reports neck and lower back pain from a fall at work. 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, rec drugs Famhx- Mom- MM, Dad- CVA Ros neg except for hpi Pex Gen- in nad, alert Resp- no cough, no ronchi, no stridor, lungs ctab, no cyanosis, speaking in full sentences Cards- s1s2 heard, no JVD, no leg edema, RRR Skin- dry, warm, clean Psych- Cooperative, no agitation neuro- cn2-12 grossly intact, no seizures, no facial droop, speech clear hent- at/nc, mohit, neck supple, trachea midline, uvula slight swollen Gi- soft non-tender, no guarding, no rebound, no rigidity Musk- normal arom bue/ble Prob list FB in throat a/p- 62 yo f w no significant pmhx presents to the ER for evaluation of FB sensation in throat placed in obs 1. FB sensation in throat Pt reports a piece of shrimp got stuck in throat CT of neck negative for acute process Given 1 dose of IV dexamethasone in the ER Monitor Airway q 4hours 2. Neck and lower back pain Reports fall at work Pain control; Tylenol, Zanaflex Dvt prophy expect less than 24 hour stay oob fen reg diet dispo- obs for fb sensation in throat. ok for dc in am if asymptomatic History Source: Patient Limitations to Obtaining History: No Limitations - Past Surgical History Past Surgical History: Yes: None - Smoking History Smoking history: Never smoked Have you smoked in the past 12 months: No Aproximately how many cigarettes per day: 0 - Alcohol/Substance Use Hx Alcohol Use: No History of Substance Use: reports: None - Social History History of Recent Travel: No Home Medications - Allergies Allergies/Adverse Reactions: Allergies Allergy/AdvReac Type Severity Reaction Status Date / Time No Known Allergies Allergy Verified 02/02/17 14:15 - Home Medications Home Medications: Ambulatory Orders Aspirin [ASA -] 81 mg PO DAILY 11/23/14 Diclofenac Sodium 75 mg PO BID 02/02/17 Tizanidine HCl [Zanaflex] 4 mg PO BID 02/02/17 Physical Examination Vital Signs: Vital Signs Temperature 98.7 F 03/19/17 19:21 Pulse Rate 94 H 03/19/17 19:21 Respiratory Rate 16 03/19/17 19:21 Blood Pressure 154/72 03/19/17 19:21 O2 Sat by Pulse Oximetry (%) 98 03/19/17 19:21 Labs: CBC, BMP 03/19/17 20:30 03/19/17 20:30 Visit type - Emergency Visit Emergency Visit: Yes ED Registration Date: 03/19/17 Care time: The patient presented to the Emergency Department on the above date and was hospitalized for further evaluation of their emergent condition. - New Patient This patient is new to me today: Yes Date on this admission: 03/20/17 - Critical Care Critical Care patient: No
[2017-03-19] MEDS ORDERED: CYCLOBENZAPRINE HCL 10 MG TABLET (FP) PO PRN (23:44)
[2017-03-20] MEDS: ACETAMINOPHEN 325 MG TABLET (FP) PO PRN ×2 (02:15→07:45)
[2017-03-20] MEDS ORDERED: predniSONE 20 MG TABLET (UD) PO ONE (08:45)
--- NOTE | 2017-03-20 13:51 | DS ---
Physical Exam: SUBJECTIVE: Patient seen and examined at the bedside. She denies any shortness of breath, able to eat her soft meal this morning without difficulty swallowing. She complains of throat muscular discomfort. She states that she is under the care of Dr. Gillette who is closely monitoring her BP. She is aware that her BP has been elevated. She takes her BP and pulse at home and states that her systolic is usually in the 140s and heart rate in the 70s. Has follow up appointment with her Dr Gillette and Dr. Mayberry (level designer) as an outpatient. She denies chest pain, itching, flusihing or hives. No dizziness, weakness, nausea or vomiting. OBJECTIVE: Tolerating room air, vitals stable, no wheezing on exam. She is able to swallow her pills and tolerating her meals. Her tongue is not swollen, no swollen on the oropharynyx, her uvula is at midline, no signs of edema. She is tolerating room air and is no acute distress Will d/c home with steroid taper. Patient informed of allergy testing and to avoid fish products, speficially shellfish until cleared by an expediter. If her systems persist, an ENT referral has been placed. Vital Signs Period Temp Pulse Resp BP Sys/Perales Pulse Ox Last 24 Hr 97.5 F-98.3 F 89-108 18-20 141-163/79-96 98-99 PHYSICAL EXAM GENERAL: The patient is awake, alert, and fully oriented, in no acute distress. HEAD: Normal with no signs of trauma. EYES: PERRL, extraocular movements intact, sclera anicteric, conjunctiva clear. ENT: Ears normal, nares patent, oropharynx clear without exudates, moist mucous membranes. NECK: Trachea midline, full range of motion, supple. LUNGS: Breath sounds equal, clear to auscultation bilaterally, no wheezes, no crackles, no accessory muscle use. HEART: Regular rate and rhythm, mild tachycardia ABDOMEN: Soft, nontender, nondistended, normoactive bowel sounds, no guarding, no rebound, no hepatosplenomegaly, no masses. EXTREMITIES: 2+ pulses, warm, well-perfused, no edema. NEUROLOGICAL: Normal speech, gait not observed. PSYCH: Normal mood, normal affect. SKIN: Warm, dry, normal turgor, no rashes or lesions noted. LABS HOSPITAL COURSE: Date of Admission:03/19/17 Date of Discharge: 03/20/17 Patient is a 62 year old female with a significant past medical history of hypertension. She was admitted on 03/19/2017 for further evaluation of throat swelling after eating shrimp. She reports that she ate a piece of shrimp which got stuck in her throat. She tried to vomit it up but had problems evacuating it. She reported some difficulty breathing at that time and called 911 for help. On today's exam, she reports feeling better, able to tolerate her soft diet and pills. She denies any further coughing, throat tightness, wheezing, chest pain or heart palpitations. She denies any allergy to shrimp but advised her to see an expediter for further testing. Imaging: CT/Soft Tissue Neck CT 03/19/2017: No evidence of any radiopaque foreign body, no evidence of neck mass, no evidence of cervical lymphadenopathy , No evidence of vascular aneurysm, no gross abnormalities of the cervical spine , the parotid gland, submandibular glands and thyroid lobes all symmetric and grossly unremarkable. The pharyngeal laryngeal and tracheal airways patent. No evidence of abnormalities of the paratracheal space, epiglottis unremarkable. ENT: Localized throat/neck swelling/anaphylaxis - resolved A/P: Patient likely experienced a shellfish allergy, no reactions in the past as per patient She was treated with Dexamethasone 10mg ivpush in ED and Lidocaine She was given Prednisone 60 mg PO today which will continue with a 6 day taper Was also prescribed an EpiPen She has been referred to an ENT specialist and advised her to see an expediter Cardiology: Hypertension: A/P: Patient states that she is keeping track of her BP at home as per Dr. Gillette's instructions Will defer starting her on anti-hypertensive medications as her PCP is closely monitoring She also sees Dr. Mayberry (level designer) as an outpatient and has follow up appointments Disposition: Stable for d/c home. Close follow up with PCP in d/c. Minutes to complete discharge: 60 Discharge Summary Reason For Visit: THROAT SWELLING Current Active Problems Throat swelling (Acute) Condition: Stable - Instructions Diet, Activity, Other Instructions: Mrs. Russell: You were admitted on 03/19/2017 for throat swelling after consuming shrimp. Please continue the Prednisone taper as directed. It is very important that you follow this schedule. Prednisone is a medicine that cannot be stopped abruptly and has to be tapered off gradually. On 03/21/2017 Take Prednisone 60mg at 9am On 03/22/2017 Take Prednisone 50mg at 9am On 03/23/2017 Take Prednisone 40mg at 9am On 03/24/2017 Take Prednisone 30mg at 9am On 03/25/2017 Take Prednisone 20mg at 9am On 03/26/2017 Take Prednisone 10mg at 9am - THIS IS YOUR LAST DOSE You have been referred to an ENT specialist in case your throat symptoms worsen or do not improve. Please see Dr. Gillette and continue to monitor your blood pressures as he has instructed you to do. We will not start you on any anti-hypertensive medications as you are under his care and he is monitoring you. Also, it is advised that you see an expediter for allergy testing. Please avoid all shell fish, fish or products that contain fish until you see the expediter. I have also ordered an Epipen, this is an emergency medicine for allergic reactions. If you have questions, please call me: [phone] Referrals: Jayce Gillette MD [Staff Physician] - Alexey Georges MD [Staff Physician] - Disposition: HOME - Home Medications Comprehensive Discharge Medication List: Ambulatory Orders Aspirin [ASA -] 81 mg PO DAILY 11/23/14 Diclofenac Sodium 75 mg PO BID 02/02/17 Tizanidine HCl [Zanaflex] 4 mg PO BID 02/02/17 This patient is new to me today: Yes Date on this admission: 03/20/17 Emergency Visit: Yes ED Registration Date: 03/19/17 Care time: The patient presented to the Emergency Department on the above date and was hospitalized for further evaluation of their emergent condition. Critical Care patient: No - Discharge Referral Referred to [facility] No
[2017-03-20 14:17] VITALS: BP 148/92; PULSE 100; TEMP 97.8
== END 2017-03-20 18:36 | disposition home or self-care (01) | DRG 607 ==
LOC: JER 19:08 → JERBED 23:11 → INTOOBSV 23:11 → UNDOADMIN 23:20 → JERBED 23:20 → J6S 03-20 02:02
PROVIDERS: ADMIT Internal Medicine; ATTEND Nurse Practitioner Family
DX: R22.1 Localized swelling, mass and lump, neck (principal); M54.5 Low back pain; I10 Essential (primary) hypertension
CPT/HCPCS: 36415; 70491-TC; 80048; 85025; 99283-25; G0378

== ENCOUNTER 2017-04-11 16:48 | Emergency (ER) | payer OTHER ==
[2017-04-11 16:57] VITALS: TEMP 98.9; BMI 27.4
[2017-04-11] MEDS ORDERED: ASPIRIN 81 MG CHEWABLE TABLETS PO ONE (17:19)
--- NOTE | 2017-04-11 17:19 | PDOC ---
History of Present Illness <Sujata Santamaria Leidy - Last Filed: 04/11/17 23:33> <Maegan Xavier - Last Filed: 04/12/17 00:35> - General Chief Complaint: Chest Pain Stated Complaint: CHEST PAIN Time Seen by Provider: 04/11/17 17:09 - History of Present Illness Initial Comments: 04/11/17 17:41 The patient is a 62 year old female, with a significant past medical history of hypertension (taking lisinopril), who presents to the emergency department with constant low-level chest pain since midnight with 2 days of right lower extremity cramping. The patient describes her chest pain as constant, localized to the substernal region without radiation. She states her pain is 5/10 in severity and describes it as low-level aching with minimal pressure. The patient states she had a negative stress test with Dr. Allie Mayberry recently. Secondarily, the patient reports a cramping to her right leg that radiating up from her toes to her inner thigh for 2 days. She admits the pain occurs at night and states she iced her leg with little to no improvement. She denies shortness of breath, headache and dizziness. She denies fever, chills , nausea, vomit, diarrhea and constipation. She denies dysuria, frequency, urgency and hematuria. Allergies: NKDA Past surgical history: catheterization (2007) PCP - Dr. Gillette (Maegan Xavier) Past History - Past Medical History HTN: Yes Thyroid Disease: No - Immunization History Immunization Up to Date: Yes - Psycho/Social/Smoking Cessation Hx Anxiety: No Suicidal Ideation: No Smoking Status: No Smoking History: Never smoked Have you smoked in the past 12 months: No Number of Cigarettes Smoked Daily: 0 Information on smoking cessation initiated: No Hx Alcohol Use: No Drug/Substance Use Hx: No Substance Use Type: None Hx Substance Use Treatment: No <RosalioSujata Forbes - Last Filed: 04/11/17 23:33> <Maegan Xavier - Last Filed: 04/12/17 00:35> - Past Medical History Allergies/Adverse Reactions: Allergies Allergy/AdvReac Type Severity Reaction Status Date / Time No Known Allergies Allergy Verified 04/11/17 16:51 Home Medications: Ambulatory Orders Aspirin [ASA -] 81 mg PO DAILY 11/23/14 Diclofenac Sodium 75 mg PO BID 02/02/17 Tizanidine HCl [Zanaflex] 4 mg PO BID 02/02/17 Epinephrine [Epipen] 0.3 mg IJ PRN #1 auto.injct 03/20/17 Lisinopril [Prinivil] 10 mg PO DAILY 04/11/17 Review of Systems <Sujata Santamaria - Last Filed: 04/11/17 23:33> - Review of Systems Able to Perform ROS?: Yes <Maegan Xavier - Last Filed: 04/12/17 00:35> - Review of Systems Comments:: 04/11/17 17:41 CONSTITUTIONAL: Absent: fever, chills, diaphoresis, generalized weakness, malaise, loss of appetite HEENT: Absent: rhinorrhea, nasal congestion, throat pain, throat swelling, difficulty swallowing, mouth swelling, ear pain, eye pain, visual Changes CARDIOVASCULAR: (+) chest pain, Absent: syncope, palpitations, irregular heart rate, lightheadedness, peripheral edema RESPIRATORY: Absent: cough, shortness of breath, dyspnea with exertion, orthopnea, wheezing, stridor, hemoptysis GASTROINTESTINAL: Absent: abdominal pain, abdominal distension, nausea, vomiting, diarrhea, constipation, melena, hematochezia GENITOURINARY: Absent: dysuria, frequency, urgency, hesitancy, hematuria, flank pain, genital pain MUSCULOSKELETAL: (+) RLE cramps. Absent: myalgia, arthralgia, joint swelling SKIN: Absent: rash, itching, pallor HEMATOLOGIC/IMMUNOLOGIC: Absent: easy bleeding, easy bruising, lymphadenopathy, frequent infections ENDOCRINE: Absent: unexplained weight gain, unexplained weight loss, heat intolerance, cold intolerance NEUROLOGIC: Absent: headache, focal weakness or paresthesias, dizziness, unsteady gait, seizure, mental status changes, bladder or bowel incontinence PSYCHIATRIC: Absent: anxiety, depression, suicidal or homicidal ideation, hallucinations. (Maegan Xavier) *Physical Exam <Sujata Santamaria - Last Filed: 04/11/17 23:33> <Maegan Xavier - Last Filed: 04/12/17 00:35> - Vital Signs Last Vital Signs Temp Pulse Resp BP Pulse Ox 98.9 F 64 18 128/69 98 04/11/17 16:51 04/11/17 19:47 04/11/17 19:47 04/11/17 19:47 04/11/17 19:47 - Physical Exam Comments: 04/11/17 17:42 GENERAL: Well developed, well nourished. Awake and alert. No acute distress. HEENT: Normocephalic, atraumatic. PERRLA, EOMI. No conjunctival pallor. Sclera are non- icteric. Moist mucous membranes. Oropharynx is clear. NECK: Supple. Full ROM. No JVD. Carotid pulses 2+ and symmetric, without bruits. No thyromegaly. No lymphadenopathy. CARDIOVASCULAR: Regular rate and rhythm. No murmurs, rubs, or gallops. Distal pulses are 2+ and symmetric. PULMONARY: No evidence of respiratory distress. Lungs clear to auscultation bilaterally. No wheezing, rales or rhonchi. ABDOMINAL: Soft. Non-tender. Non-distended. No rebound or guarding. No organomegaly. Normoactive bowel sounds. MUSCULOSKELETAL Normal range of motion at all joints. No bony deformities or tenderness. No CVA tenderness. EXTREMITIES: No cyanosis. No clubbing. No edema. No calf tenderness. SKIN: Warm and dry. Normal capillary refill. No rashes. No jaundice. NEUROLOGICAL: Alert, awake, appropriate. Cranial nerves 2-12 intact. Normoreflexic in the upper and lower extremities. Normal speech. Toes are down-going bilaterally. Gait is normal without ataxia. PSYCHIATRIC: Cooperative. Good eye contact. Appropriate mood and affect (Maegan Xavier) Heart Score/ECG Review <Sujata Santamaria - Last Filed: 04/11/17 23:33> <Maegan Xavier - Last Filed: 04/12/17 00:35> - ECG Intrepretation Comment:: 04/12/17 00:34 ECG was read by Dr. Santamaria at 17:08 Impression: Normal sinus rhythm Vent rate: 90 [place] Interval: 176 ms QTc: 433 ms (Maegan Xavier) ED Treatment Course - LABORATORY CBC & Chemistry Diagram: 04/11/17 17:30 04/11/17 17:30 <Sujata Santamaria - Last Filed: 04/11/17 23:33> - LABORATORY CBC & Chemistry Diagram: 04/11/17 17:30 04/11/17 17:30 <Maegan Xavier - Last Filed: 04/12/17 00:35> - ADDITIONAL ORDERS Additional order review: Laboratory Results 04/11/17 04/11/17 04/11/17 22:50 17:30 17:30 INR 1.11 Sodium 140 Potassium 4.1 Chloride 103 Carbon Dioxide 30 Anion Gap 7 L BUN 14 Creatinine 0.8 Creat Clearance w eGFR > 60 Random Glucose 128 H Calcium 9.3 Magnesium 2.5 H Total Bilirubin 0.3 D AST 17 D ALT 29 D Alkaline Phosphatase 87 Creatine Kinase 216 H 265 H Creatine Kinase Index 1.4 1.6 CK-MB (CK-2) 3.149 4.394 H Troponin I < 0.02 < 0.02 Total Protein 7.7 Albumin 3.9 04/11/17 17:30 RBC 4.55 MCV 88.2 MCHC 33.4 RDW 14.3 MPV 8.1 Neutrophils % 50.4 Lymphocytes % 36.7 Monocytes % 10.7 H Eosinophils % 1.8 Basophils % 0.4 - Medications Given in the ED: ED Medications Discontinued Medications Generic Name Dose Route Start Last Admin Trade Name Freq PRN Reason Stop Dose Admin Aspirin 162 mg 04/11/17 17:19 04/11/17 17:38 Asa - PO 04/11/17 17:20 162 mg ONCE ONE Administration Medical Decision Making <Sujata Santamaria - Last Filed: 04/11/17 23:33> <Maegan Xavier - Last Filed: 04/12/17 00:35> - Medical Decision Making 04/11/17 23:32 62-year-old female presents because she had chest pain that was nonradiating. She said she did have a recent stress tests that was negative. EKG did not show any signs of ischemia Cardiac enzymes are negative x 2 sets labs reviewed [id number] imp chest pain plan-followup with music engraver (Sujata Santamaria) *DC/Admit/Observation/Transfer <Sujata Santamaria - Last Filed: 04/11/17 23:33> <Maegan Xavier - Last Filed: 04/12/17 00:35> Diagnosis at time of Disposition: Nocturnal leg cramps Chest pain Qualifiers: Chest pain type: unspecified Qualified Code(s): R07.9 - Chest pain, unspecified - Discharge Dispostion Disposition: HOME Condition at time of disposition: Stable - Referrals Referrals: Jayce Gillette MD [Primary Care Provider] - - Patient Instructions Printed Discharge Instructions: DI for Atypical Chest Pain, DI for Nocturnal Leg Cramps Additional Instructions: please follow up with your physician - Attestations Scribe Attestion: 04/11/17 17:42 Documentation prepared by Maegan Xavier, acting as anesthesiology medical doctor for Sujata Santamaria MD (Maegan Xavier)
[2017-04-11] MEDS ORDERED: ASPIRIN 81 MG CHEWABLE TABLETS ONE (17:28)
[2017-04-11 17:43] LABS: BASOPHIL 0.4 % (0-2.0); EOSINOPHIL 1.8 % (0-4.5); MCH 29.5 pg (25.7-33.7); MCHC 33.4 g/dl (32.0-36.0); MEAN CELL VOLUME 88.2 fl (80-96); MEAN PLT VOLUME 8.1 fl (7.5-11.1); NEUTROPHILS 50.4 % (42.8-82.8); PLATELET COUNT 223 K/MM3 (134-434); RDW 14.3 % (11.6-15.6); WHITE BLOOD COUNT 7.4 K/mm3 (4.0-10.0)
[2017-04-11 17:57] LABS: INR 1.11 (0.82-1.09); PROTHROMBIN TIME (PATIENT) 12.2 SEC (9.98-11.88)
[2017-04-11 18:06] LABS: ALBUMIN 3.9 g/dl (3.4-5.0); ANION GAP 7 (8-16); BILIRUBIN,TOTAL 0.3 mg/dL (0.2-1.0); CALCIUM 9.3 mg/dL (8.5-10.1); CO2 30 mmol/L (21-32); CREATININE 0.8 mg/dL (0.55-1.02); GLUCOSE,RANDOM 128 mg/dL (74-106); MAGNESIUM 2.5 mg/dL (1.8-2.4); SGOT/AST 17 U/L (15-37); SGPT/ALT 29 U/L (12-78); TOT PROT 7.7 g/dl (6.4-8.2)
[2017-04-11 18:08] LABS: ALK PHOS 87 U/L (45-117); CPK 265 IU/L (26-192); TROPONIN I < 0.02 ng/ml (0.00-0.05)
[2017-04-11 19:47] VITALS: BP 128/69; PULSE 64
[2017-04-11 23:23] LABS: CPK 216 IU/L (26-192); TROPONIN I < 0.02 ng/ml (0.00-0.05)
--- NOTE | 2017-04-12 17:47 | EKG ---
Test Reason : Blood Pressure : / mmHG Vent. Rate : 090 BPM Atrial Rate : 090 BPM P-R Int : 176 ms QRS Dur : 084 ms QT Int : 354 ms P-R-T Axes : 071 014 055 degrees QTc Int : 433 ms NORMAL SINUS RHYTHM POSSIBLE ANTERIOR INFARCT (CITED ON OR BEFORE 13-NOV-2016) ABNORMAL ECG WHEN COMPARED WITH ECG OF 13-NOV-2016 01:15, ABERRANT CONDUCTION IS NO LONGER PRESENT REPEAT EKG IF CLINICALLY INDICATED Confirmed by VERO HICKMAN MD ([id number] on 04/12/2017 5:47:37 PM Referred By: Confirmed By:VERO HICKMAN MD
== END 2017-04-12 00:18 | disposition home or self-care (01) ==
LOC: JER 16:48
DX: R07.9 Chest pain, unspecified (principal); G47.62 Sleep related leg cramps; I10 Essential (primary) hypertension; Z79.82 Long term (current) use of aspirin
CPT/HCPCS: 36415; 71010-TC; 80053; 82553; 83735; 84484; 85025; 85610; 93005; 93010; 99285-25

== ENCOUNTER 2017-07-05 01:20 | Observation (INO) | payer OTHER ==
[2017-07-05 02:14] VITALS: BMI 26.2
--- NOTE | 2017-07-05 02:52 | PDOC ---
History of Present Illness - General Chief Complaint: Chest Pain Stated Complaint: NECK PAIN/FATIGUE Time Seen by Provider: 07/05/17 02:35 History Source: Patient Exam Limitations: No Limitations - History of Present Illness Initial Comments: This is a 62 YOF with h/o chronic back pain who presents c/o 6/10 tight and stabbing left-sided chest pain radiating to the left neck and left shoulder since 10 am today (07/04/17). She took two baby aspirin without relief. She had a similar episode of pain about three months ago. She additionally notes urinary frequency, fatigue, and mild headache, but she denies any additional symptoms (no cough, runny nose, sore throat, fever, chills, nausea, vomiting, diarrhea, constipation, SOB, abdominal pain, burning on urination, strange colors or smells to the urine, vaginal bleeding or discharge, black/bloody stool , numbness, tingling, or focal weakness. She is followed by a certified orthotic fitter (Dr. Baptiste) who did a stress test 3-4 months ago and the patient states the results were normal. Past History - Past Medical History Allergies/Adverse Reactions: Allergies Allergy/AdvReac Type Severity Reaction Status Date / Time SHRIMP AdvReac Uncoded 07/05/17 04:21 Home Medications: Ambulatory Orders Aspirin [ASA -] 81 mg PO DAILY 11/23/14 Diclofenac Sodium 75 mg PO BID 02/02/17 Tizanidine HCl [Zanaflex] 4 mg PO BID 02/02/17 Epinephrine [Epipen] 0.3 mg IJ PRN #1 auto.injct 03/20/17 Lisinopril [Prinivil] 10 mg PO DAILY 04/11/17 HTN: Yes Thyroid Disease: No - Immunization History Immunization Up to Date: Yes - Suicide/Smoking/Psychosocial Hx Smoking Status: No Smoking History: Never smoked Have you smoked in the past 12 months: No Number of Cigarettes Smoked Daily: 0 Information on smoking cessation initiated: No Hx Alcohol Use: No Drug/Substance Use Hx: No Substance Use Type: None Hx Substance Use Treatment: No *Physical Exam - Vital Signs Last Vital Signs Temp Pulse Resp BP Pulse Ox 98.1 F 87 16 139/85 98 07/05/17 02:09 07/05/17 06:21 07/05/17 06:21 07/05/17 06:21 07/05/17 06:21 Heart Score/ECG Review - History History: Highly suspicious - Electrocardiogram EKG: Normal - Age Age: 45-65 - Risk Factors Risk Factors Heart Score: Yes Hx Hypertension Based on the list above the patient has:: 1-2 risk factors - Troponin Troponin: </= normal limit - Score Heart Score - Total: 4 ED Treatment Course - LABORATORY CBC & Chemistry Diagram: 07/05/17 03:24 07/05/17 03:24 - ADDITIONAL ORDERS Additional order review: Laboratory Results 07/05/17 07/05/17 07/05/17 03:41 03:24 03:24 Sodium Potassium Chloride Carbon Dioxide Anion Gap BUN Creatinine Creat Clearance w eGFR Random Glucose Calcium Total Bilirubin AST ALT Alkaline Phosphatase Creatine Kinase Troponin I B-Natriuretic Peptide Total Protein Albumin Lipase 141 TSH 2.39 Urine Color Colorless Urine Appearance Clear Urine pH 6.0 Ur Specific [place] 1.005 Urine Protein Negative Urine Glucose (UA) Negative Urine Ketones Negative Urine Blood 1+ H Urine Nitrite Negative Urine Bilirubin Negative Urine Urobilinogen Negative Urine WBC (Auto) <1 Urine RBC (Auto) 2 07/05/17 03:24 Sodium 140 Potassium 3.8 Chloride 104 Carbon Dioxide 29 Anion Gap 7 L BUN 16 Creatinine 0.9 Creat Clearance w eGFR > 60 Random Glucose 138 H Calcium 8.6 Total Bilirubin 0.2 D AST 9 L D ALT 18 D Alkaline Phosphatase 89 Creatine Kinase 115 Troponin I < 0.02 B-Natriuretic Peptide 23.24 Total Protein 7.3 Albumin 3.5 Lipase TSH Urine Color Urine Appearance Urine pH Ur Specific [place] Urine Protein Urine Glucose (UA) Urine Ketones Urine Blood Urine Nitrite Urine Bilirubin Urine Urobilinogen Urine WBC (Auto) Urine RBC (Auto) 07/05/17 03:24 RBC 4.61 MCV 87.4 MCHC 33.3 RDW 13.9 MPV 8.2 Neutrophils % 61.7 D Lymphocytes % 27.3 D Monocytes % 9.0 Eosinophils % 1.4 Basophils % 0.6 - RADIOLOGY Radiology Studies Ordered: Category Date Time Status CHEST PA & LAT [RAD] Stat Radiology 07/05/17 03:09 Taken Medical Decision Making - Medical Decision Making 62 YOF with h/o chronic back pain, episodic chest pain, HTN, multiple cardiac stress tests which have been normal. Presents with left chest pain radiating to left shoulder and neck. Unremarkable exam, minimal tenderness to compression of the anterior chest wall , VS wnl aside from mild HTN. DDX IBNLT ACS, GERD/gastritis/PUD, pancreatitis, PE, PNA, PTX, etc. Ordered is CBCD, CMP, cardiac panel, BNP, TSH, lipase, UA cx, EKG, CXR. 07/05/17 05:45 Patient with continued left neck and shoulder pain but no longer chest pain. Will follow up second set of troponin at 0615 and also will call Dr. Mayberry's office at that time. 07/05/17 07:05 Awaiting results of repeat troponin, awaiting call from Cardiology. Patient's care is signed out to oncoming resident. 07/05/17 07:[address] Murphy on for Dr. Mayberry, who recommends trying NTG, admit obs, Dr. Mayberry consulting. Believes we should be able to do the nuclear stress test today. Pt NPO, no caffeine, will try NTG. *DC/Admit/Observation/Transfer - Referrals Referrals: Jayce Gillette MD [Primary Care Provider] - - Patient Instructions - Post Discharge Activity
--- NOTE | 2017-07-05 02:54 | PDOC ---
Attending Attestation - Resident Resident Name: Chikis Drummond - ED Attending Attestation I have performed the following: I have examined & evaluated the patient, The case was reviewed & discussed with the resident, I agree w/resident's findings & plan, Exceptions are as noted
[2017-07-05 03:34] LABS: BASOPHIL 0.6 % (0-2.0); EOSINOPHIL 1.4 % (0-4.5); MCH 29.1 pg (25.7-33.7); MCHC 33.3 g/dl (32.0-36.0); MEAN CELL VOLUME 87.4 fl (80-96); MEAN PLT VOLUME 8.2 fl (7.5-11.1); NEUTROPHILS 61.7 % (42.8-82.8); PLATELET COUNT 236 K/MM3 (134-434); RDW 13.9 % (11.6-15.6); WHITE BLOOD COUNT 9.2 K/mm3 (4.0-10.0)
[2017-07-05 03:55] LABS: URINE APPEARANCE CLEAR; URINE BILIRUBIN NEGATIVE (NEGATIVE); URINE BLOOD 1+ (NEGATIVE); URINE COLOR COLORLESS; URINE GLUCOSE (UA) NEGATIVE (NEGATIVE); URINE KETONE NEGATIVE (NEGATIVE); URINE NITRITE NEGATIVE (NEGATIVE); URINE PROTEIN NEGATIVE (NEGATIVE); URINE UROBILINOGEN NEGATIVE mg/dL (0.2-1.0)
[2017-07-05 03:59] LABS: ALBUMIN 3.5 g/dl (3.4-5.0); ANION GAP 7 (8-16); BILIRUBIN,TOTAL 0.2 mg/dL (0.2-1.0); CALCIUM 8.6 mg/dL (8.5-10.1); CO2 29 mmol/L (21-32); CREATININE 0.9 mg/dL (0.55-1.02); GLUCOSE,RANDOM 138 mg/dL (74-106); SGOT/AST 9 U/L (15-37); SGPT/ALT 18 U/L (12-78); TOT PROT 7.3 g/dl (6.4-8.2)
[2017-07-05 04:01] LABS: ALK PHOS 89 U/L (45-117); CPK 115 IU/L (26-192); TROPONIN I < 0.02 ng/ml (0.00-0.05)
[2017-07-05 05:05] LABS: URINE RBC 2 /hpf (0-3); URINE WBC <1 /hpf (3-5)
[2017-07-05] MEDS ORDERED: NITROGLYCERIN SUBLINGUAL 1/200 0.3 MG BTL SL ONE (07:47)
[2017-07-05 07:51] LABS: CPK 108 IU/L (26-192); TROPONIN I < 0.02 ng/ml (0.00-0.05)
--- NOTE | 2017-07-05 08:20 | HP ---
CHIEF COMPLAINT: Chest pain PCP: Dr. Gillette Cardiology: Dr. Mayberry HISTORY OF PRESENT ILLNESS: 62 year-old female with a PMH significant for HTN, HLD, and chronic back neck and pain s/p work-related injury in 08/2016. Patient presented to the ED with a complaint of mid-sternal chest pain since yesterday (07/04) around midday. She was at work sitting at her desk when the pain started. She describes the pain as constant pressure with intermittent bursts of sharp stabbing pain. Patient denies palpitations, lightheadedness, diaphoresis, SOB, REA, or lower extremity edema. She denies headache, cough, fever, sweats, chills. Patient follows with Dr. Mayberry, last saw her three months ago. Tor is presently undergoing a workup for hematuria with Dr. Chacko. ER course was notable for: (1) Troponin neg x 1 Recent Travel: No PAST MEDICAL HISTORY: Hypertension Hyperlipidemia PAST SURGICAL HISTORY: Tubal ligation/fibroids Social History: Smoking: no Alcohol: no Drugs: no Family History: mother 62 multiple myeloma; father 59 CVA; sister 64 multiple myeloma Allergies SHRIMP Adverse Reaction (Uncoded 07/05/17 04:21) HOME MEDICATIONS: Home Medications Medication Instructions Recorded Aspirin [ASA -] 81 mg PO DAILY 11/23/14 Diclofenac Sodium 75 mg PO BID 02/02/17 Tizanidine HCl [Zanaflex] 4 mg PO BID 02/02/17 Epinephrine [Epipen] 0.3 mg IJ PRN #1 auto.injct 03/20/17 Lisinopril [Prinivil] 10 mg PO DAILY 04/11/17 REVIEW OF SYSTEMS CONSTITUTIONAL: Absent: fever, chills, diaphoresis, generalized weakness, malaise, loss of appetite, weight change HEENT: Absent: rhinorrhea, nasal congestion, throat pain, throat swelling, difficulty swallowing, mouth swelling, ear pain, eye pain, visual changes CARDIOVASCULAR: Present: chest pain Absent: syncope, palpitations, irregular heart rate, lightheadedness, peripheral edema RESPIRATORY: Absent: cough, shortness of breath, dyspnea with exertion, orthopnea, wheezing, stridor, hemoptysis GASTROINTESTINAL: Absent: abdominal pain, abdominal distension, nausea, vomiting, diarrhea, constipation, melena, hematochezia GENITOURINARY: Present: frequency Absent: dysuria, urgency, hesitancy, hematuria, flank pain, genital pain MUSCULOSKELETAL: Absent: myalgia, arthralgia, joint swelling, back pain, neck pain SKIN: Absent: rash, itching, pallor HEMATOLOGIC/IMMUNOLOGIC: Absent: easy bleeding, easy bruising, lymphadenopathy, frequent infections ENDOCRINE: Absent: unexplained weight gain, unexplained weight loss, heat intolerance, cold intolerance NEUROLOGIC: Absent: headache, focal weakness or paresthesias, dizziness, unsteady gait, seizure, mental status changes, bladder or bowel incontinence PSYCHIATRIC: Absent: anxiety, depression, suicidal or homicidal ideation, hallucinations. PHYSICAL EXAMINATION Vital Signs - 24 hr 07/05/17 07/05/17 02:09 06:21 Temperature 98.1 F Pulse Rate 93 H Pulse Rate [ 87 Radial] Respiratory 14 16 Rate Blood Pressure 154/78 Blood Pressure 139/85 [Right Arm] O2 Sat by Pulse 99 98 Oximetry (%) GENERAL: Awake, alert, and fully oriented, in no acute distress. HEAD: Normal with no signs of trauma. EYES: Pupils equal, round and reactive to light, extraocular movements intact, sclera anicteric, conjunctiva clear. No lid lag. EARS, NOSE, THROAT: Ears normal, nares patent, oropharynx clear without exudates. Moist mucous membranes. NECK: Normal range of motion, supple without lymphadenopathy, JVD, or masses. LUNGS: Breath sounds equal, clear to auscultation bilaterally. No wheezes, and no crackles. No accessory muscle use. HEART: Regular rate and rhythm, normal S1 and S2 without murmur, rub or gallop. ABDOMEN: Soft, nontender, not distended, normoactive bowel sounds, no guarding, no rebound, no masses. No hepatomegaly or splenomegaly. MUSCULOSKELETAL: Normal range of motion at all joints. No bony deformities or tenderness. No CVA tenderness. UPPER EXTREMITIES: 2+ pulses, warm, well-perfused. No cyanosis. No clubbing. No peripheral edema. LOWER EXTREMITIES: 2+ pulses, warm, well-perfused. No calf tenderness. No peripheral edema. NEUROLOGICAL: Cranial nerves II-XII intact. Normal speech. Gait not observed. PSYCHIATRIC: Cooperative. Good eye contact. Appropriate mood and affect. SKIN: Warm, dry, normal turgor. Laboratory Results - last 24 hr 07/05/17 07/05/17 07/05/17 03:24 03:24 03:24 WBC 9.2 RBC 4.61 Hgb 13.4 Hct 40.3 MCV 87.4 MCH 29.1 MCHC 33.3 RDW 13.9 Plt Count 236 MPV 8.2 Neutrophils % 61.7 D Lymphocytes % 27.3 D Monocytes % 9.0 Eosinophils % 1.4 Basophils % 0.6 Sodium 140 Potassium 3.8 Chloride 104 Carbon Dioxide 29 Anion Gap 7 L BUN 16 Creatinine 0.9 Creat Clearance w eGFR > 60 Random Glucose 138 H Calcium 8.6 Total Bilirubin 0.2 D AST 9 L D ALT 18 D Alkaline Phosphatase 89 Creatine Kinase 115 Troponin I < 0.02 B-Natriuretic Peptide 23.24 Total Protein 7.3 Albumin 3.5 Lipase 141 TSH Urine Color Urine Appearance Urine pH Ur Specific [place] Urine Protein Urine Glucose (UA) Urine Ketones Urine Blood Urine Nitrite Urine Bilirubin Urine Urobilinogen Urine WBC (Auto) Urine RBC (Auto) 07/05/17 07/05/17 03:24 03:41 WBC RBC Hgb Hct MCV MCH MCHC RDW Plt Count MPV Neutrophils % Lymphocytes % Monocytes % Eosinophils % Basophils % Sodium Potassium Chloride Carbon Dioxide Anion Gap BUN Creatinine Creat Clearance w eGFR Random Glucose Calcium Total Bilirubin AST ALT Alkaline Phosphatase Creatine Kinase Troponin I B-Natriuretic Peptide Total Protein Albumin Lipase TSH 2.39 Urine Color Colorless Urine Appearance Clear Urine pH 6.0 Ur Specific [place] 1.005 Urine Protein Negative Urine Glucose (UA) Negative Urine Ketones Negative Urine Blood 1+ H Urine Nitrite Negative Urine Bilirubin Negative Urine Urobilinogen Negative Urine WBC (Auto) <1 Urine RBC (Auto) 2 ASSESSMENT/PLAN: 62 year-old female with a PMH significant for HTN, HLD, and chronic back neck and pain. Placed on observation for chest pain. Chest pain --r/o ACS: troponins neg x 2, third pending; CXR unremarkable; ECG not suggestive of acute ischemic event; will schedule nuclear stress; Dr. Mayberry following; telemetry monitoring; continue low dose ASA --r/o PE: Wells score zero, no indication for further workup Hypertension --BP well-controlled --continue home dose lisinopril 2.5mg daily Hyperlipidemia --on no meds Chronic neck and back pain --hold home diclofenac and tizanidine Urinary frequency --patient states in past 24 hours has urinated "constantly" --UA negative --electrolytes wnl --serum glucose elevated and patient states she was once told she was pre- diabetic; will get HgbA1C FEN Fluids: PO intake adequate Electrolytes: replete as indicated Nutrition: NPO for now DVT prophylaxis: subq heparin, oob, ambulation Dispo: continues to require observation. Full code. Visit type - Emergency Visit Emergency Visit: Yes ED Registration Date: 07/05/17 Care time: The patient presented to the Emergency Department on the above date and was hospitalized for further evaluation of their emergent condition. - New Patient This patient is new to me today: Yes Date on this admission: 07/05/17 - Critical Care Critical Care patient: No
--- NOTE | 2017-07-05 08:21 | PDOC ---
*Physical Exam - Vital Signs Last Vital Signs Temp Pulse Resp BP Pulse Ox 98.1 F 87 16 139/85 99 07/05/17 02:09 07/05/17 06:21 07/05/17 06:21 07/05/17 06:21 07/05/17 07:10 ED Treatment Course - LABORATORY CBC & Chemistry Diagram: 07/05/17 03:24 07/05/17 03:24 - ADDITIONAL ORDERS Additional order review: Laboratory Results 07/05/17 07/05/17 07/05/17 06:50 03:41 03:24 Sodium Potassium Chloride Carbon Dioxide Anion Gap BUN Creatinine Creat Clearance w eGFR Random Glucose Calcium Total Bilirubin AST ALT Alkaline Phosphatase Creatine Kinase 108 Troponin I < 0.02 B-Natriuretic Peptide Total Protein Albumin Lipase TSH 2.39 Urine Color Colorless Urine Appearance Clear Urine pH 6.0 Ur Specific [place] 1.005 Urine Protein Negative Urine Glucose (UA) Negative Urine Ketones Negative Urine Blood 1+ H Urine Nitrite Negative Urine Bilirubin Negative Urine Urobilinogen Negative Urine WBC (Auto) <1 Urine RBC (Auto) 2 07/05/17 07/05/17 03:24 03:24 Sodium 140 Potassium 3.8 Chloride 104 Carbon Dioxide 29 Anion Gap 7 L BUN 16 Creatinine 0.9 Creat Clearance w eGFR > 60 Random Glucose 138 H Calcium 8.6 Total Bilirubin 0.2 D AST 9 L D ALT 18 D Alkaline Phosphatase 89 Creatine Kinase 115 Troponin I < 0.02 B-Natriuretic Peptide 23.24 Total Protein 7.3 Albumin 3.5 Lipase 141 TSH Urine Color Urine Appearance Urine pH Ur Specific [place] Urine Protein Urine Glucose (UA) Urine Ketones Urine Blood Urine Nitrite Urine Bilirubin Urine Urobilinogen Urine WBC (Auto) Urine RBC (Auto) 07/05/17 03:24 RBC 4.61 MCV 87.4 MCHC 33.3 RDW 13.9 MPV 8.2 Neutrophils % 61.7 D Lymphocytes % 27.3 D Monocytes % 9.0 Eosinophils % 1.4 Basophils % 0.6 Medical Decision Making - Medical Decision Making 62 year old female signed out in stable condition being admitted under cardiac tele obs under Dr. Choudhury. 07/05/17 08:17 *DC/Admit/Observation/Transfer Diagnosis at time of Disposition: Chest pain Qualifiers: Chest pain type: unspecified Qualified Code(s): R07.9 - Chest pain, unspecified - Discharge Dispostion Disposition: HOME Admit: Yes - Referrals Referrals: Jayce Gillette MD [Primary Care Provider] - - Patient Instructions - Post Discharge Activity
[2017-07-05] MEDS ORDERED: LISINOPRIL 10 MG TABLET (FP) PO SCH ×2 (10:00→11:00)
--- NOTE | 2017-07-05 10:24 | EKG ---
Test Reason : Blood Pressure : / mmHG Vent. Rate : 090 BPM Atrial Rate : 090 BPM P-R Int : 182 ms QRS Dur : 088 ms QT Int : 360 ms P-R-T Axes : 071 014 048 degrees QTc Int : 440 ms NORMAL SINUS RHYTHM NORMAL ECG WHEN COMPARED WITH ECG OF 11-APR-2017 17:07, NO SIGNIFICANT CHANGE WAS FOUND Confirmed by TAYE MAR MD ([id number]) on 07/05/2017 10:24:06 AM Referred By: Confirmed By:TAYE MAR MD
[2017-07-05] MEDS ORDERED: ASPIRIN 81 MG CHEWABLE TABLETS ONE (10:31)
[2017-07-05 10:39] LABS: URINE LEUK ESTERASE Negative (NEGATIVE)
[2017-07-05] MEDS: ASPIRIN 81 MG CHEWABLE TABLETS PO SCH (10:40)
--- NOTE | 2017-07-05 11:28 | CON.CARD ---
Cardiology Consult (text) - Consultation Consultation Note: CC: CP 62 yo with h/o htn, hl p/w CP. has hx of chronic atypical CP. this is similar, but more severe and associated with fatigue. constant. + ttp. + radiation to left neck/shoulder. She denies cough, wheezing, heart palps, f/c/s, n/v/d. She denies numbness, tingling. She reports neck and lower back pain from a fall at work. no orthopnea, sob, le edema, pnd, bleeding, transient neurologic sx's. 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, rec drugs Famhx- Mom- MM, Dad- CVA ros: per hpi Ambulatory Orders Aspirin [ASA -] 81 mg PO DAILY 11/23/14 Diclofenac Sodium 75 mg PO BID 02/02/17 Tizanidine HCl [Zanaflex] 4 mg PO BID 02/02/17 Epinephrine [Epipen] 0.3 mg IJ PRN #1 auto.injct 03/20/17 Lisinopril [Prinivil] 2.5 mg PO DAILY 04/11/17 Current Medications Aspirin (Asa -) 81 mg PO DAILY [facility] Last Admin: 07/05/17 10:40 Dose: 81 mg Heparin Sodium (Porcine) (Heparin -) 5,000 unit SQ TID [facility] Lisinopril (Prinivil) 2.5 mg PO DAILY [facility] Vital Signs - 24 hr 07/05/17 07/05/17 07/05/17 02:09 06:21 07:10 Temperature 98.1 F Pulse Rate 93 H Pulse Rate [ 87 Radial] Respiratory 14 16 Rate Blood Pressure 154/78 Blood Pressure 139/85 [Right Arm] O2 Sat by Pulse 99 98 99 Oximetry (%) 07/05/17 10:40 Temperature 97.8 F Pulse Rate Pulse Rate [ 81 Radial] Respiratory 18 Rate Blood Pressure Blood Pressure 138/66 [Right Arm] O2 Sat by Pulse 100 Oximetry (%) Intake & Output 07/03/17 07/04/17 07/05/17 07/06/17 07:59 07:59 07:59 07:59 Weight 158 lb nad, calm jvd flat, neck supple rrr nl s1, s2 no mrg. +ttp. ND PMI ctab, nl effort + bs soft nt nd ext without e/c/c + dp/pt no carotid bruits no jaundice, diaphoresis, aaox3. CBC, BMP 07/05/17 03:24 07/05/17 03:24 Laboratory Tests 07/05/17 07/05/17 07/05/17 03:24 03:24 03:24 Total Bilirubin 0.2 D AST 9 L D ALT 18 D Alkaline Phosphatase 89 Creatine Kinase 115 Troponin I < 0.02 B-Natriuretic Peptide 23.24 Albumin 3.5 Lipase 141 TSH 2.39 07/05/17 06:50 Total Bilirubin AST ALT Alkaline Phosphatase Creatine Kinase Troponin I < 0.02 B-Natriuretic Peptide Albumin Lipase TSH EKG: nsr tele: nsr 62 yo with h/o htn, p/w CP. CP - CE;'s neg. EKG without ischemic changes. - although atypical CP with + ttp, patient with RF's --> stress test. HTN - would recommend BB as anti-anginal over ACEI (after stress testing). If stress test negative, patient stable for d/c. would d/c on BB (instead of ACEI) and low dose statin.
[2017-07-05] MEDS ORDERED: HEPARIN NA (PORCINE) 5,000 UNITS/ML 1ML VIAL ONE ×2 (16:53→22:34)
[2017-07-05] MEDS: HEPARIN NA (PORCINE) 5,000 UNITS/ML 1ML VIAL SQ SCH ×2 (16:54→22:32)
[2017-07-06] MEDS: HEPARIN NA (PORCINE) 5,000 UNITS/ML 1ML VIAL SQ SCH (06:09)
[2017-07-06 07:18] LABS: BASOPHIL 0.6 % (0-2.0); EOSINOPHIL 2.4 % (0-4.5); MCH 28.6 pg (25.7-33.7); MCHC 32.9 g/dl (32.0-36.0); MEAN PLT VOLUME 8.4 fl (7.5-11.1); NEUTROPHILS 50.7 % (42.8-82.8); PLATELET COUNT 240 K/MM3 (134-434); WHITE BLOOD COUNT 6.7 K/mm3 (4.0-10.0)
[2017-07-06] MEDS ORDERED: FLU VACCINE QUAD 60 MCG/0.5 ML (MDV 17-18) IM ONE (07:19)
[2017-07-06 07:57] LABS: ALBUMIN 3.4 g/dl (3.4-5.0); ANION GAP 6 (8-16); CO2 28 mmol/L (21-32); GLUCOSE,RANDOM 100 mg/dL (74-106); MAGNESIUM 2.4 mg/dL (1.8-2.4)
[2017-07-06 08:00] LABS: ALK PHOS 86 U/L (45-117); BILIRUBIN,TOTAL 0.7 mg/dL (0.2-1.0); CREATININE 0.7 mg/dL (0.55-1.02); PHOSPHOROUS 4.1 mg/dL (2.5-4.9); SGOT/AST 13 U/L (15-37); SGPT/ALT 16 U/L (12-78); TOT PROT 7.2 g/dl (6.4-8.2)
[2017-07-06] MEDS: ASPIRIN 81 MG CHEWABLE TABLETS PO SCH (09:30)
[2017-07-06] MEDS ORDERED: LISINOPRIL 5 MG TABLET (FP) PO SCH (10:00)
--- NOTE | 2017-07-06 11:37 | PN ---
Progress Note (short form) - Note Progress Note: s: no sob palps dizzy, cp; has pain in back of neck moving to shoulders b/l o: Vital Signs Period Temp Pulse Resp BP Sys/Perales Pulse Ox Last 24 Hr 97.7 F-98.6 F 70-78 16-18 108-159/60-79 100-100 nad, calm jvd flat, neck supple rrr nl s1, s2 no mrg. ctab, nl effort + bs soft nt nd ext without e/c/c + dp/pt no jaundice, diaphoresis, aaox3. Current Medications Generic Name Dose Route Start Last Admin Trade Name Freq PRN Reason Stop Dose Admin Aspirin 81 mg 07/05/17 10:00 07/06/17 09:30 Asa - PO 81 mg DAILY [facility] Administration Heparin Sodium (Porcine) 5,000 unit 07/05/17 14:00 07/06/17 06:09 Heparin - SQ 5,000 unit TID [facility] Administration Lisinopril 2.5 mg 07/06/17 10:00 07/06/17 09:32 Prinivil PO Not Given DAILY ROX CBC, BMP 07/06/17 05:05 07/06/17 05:05 tele: sr mibi 06/2017: no ecg changes with exercise, nl lvef, cannot r/o minimal apical ischemia a/p: 62 yo with h/o htn, p/w CP. CP - CE's neg. EKG without ischemic changes. CP atypical, resolved. - stress test shows no significant ischemia HTN -cont [facility] stable for dc with outpt cardio f/u 2-4 weeks
--- NOTE | 2017-07-06 11:51 | DS ---
Physical Exam: SUBJECTIVE: Patient seen and examined. Chest pain continues to be constant but "low." OBJECTIVE: Vital Signs Period Temp Pulse Resp BP Sys/Perales Pulse Ox Last 24 Hr 97.7 F-98.6 F 70-78 16-18 108-159/60-79 100-100 PHYSICAL EXAM GENERAL: The patient is awake, alert, and fully oriented, in no acute distress. LUNGS: CTA HEART: RRR, S1, S2, no m/r/g ABDOMEN: Soft, nontender, nondistended, normoactive bowel sounds EXTREMITIES: 2+ pulses, warm, well-perfused, no edema. NEUROLOGICAL: Cranial nerves II through XII grossly intact. Normal speech, gait not observed. CBCD WBC 6.7 K/mm3 (4.0-10.0) 07/06/17 05:05 RBC 4.71 M/mm3 (3.60-5.2) 07/06/17 05:05 Hgb 13.5 GM/dL (10.7-15.3) 07/06/17 05:05 Hct 41.0 % (32.4-45.2) 07/06/17 05:05 MCV 87.0 fl (80-96) 07/06/17 05:05 MCHC 32.9 g/dl (32.0-36.0) 07/06/17 05:05 RDW 14.0 % (11.6-15.6) 07/06/17 05:05 Plt Count 240 K/MM3 (134-434) 07/06/17 05:05 MPV 8.4 fl (7.5-11.1) 07/06/17 05:05 CMP Sodium 140 mmol/L (136-145) 07/06/17 05:05 Potassium 4.4 mmol/L (3.5-5.1) 07/06/17 05:05 Chloride 106 mmol/L (98-107) 07/06/17 05:05 Carbon Dioxide 28 mmol/L (21-32) 07/06/17 05:05 Anion Gap 6 (8-16) L 07/06/17 05:05 BUN 14 mg/dL (7-18) 07/06/17 05:05 Creatinine 0.7 mg/dL (0.55-1.02) D 07/06/17 05:05 Creat Clearance w eGFR > 60 (>60) 07/06/17 05:05 Calcium 9.0 mg/dL (8.5-10.1) 07/06/17 05:05 Total Bilirubin 0.7 mg/dL (0.2-1.0) D 07/06/17 05:05 AST 13 U/L (15-37) L D 07/06/17 05:05 ALT 16 U/L (12-78) 07/06/17 05:05 Alkaline Phosphatase 86 U/L (45-117) 07/06/17 05:05 Total Protein 7.2 g/dl (6.4-8.2) 07/06/17 05:05 Albumin 3.4 g/dl (3.4-5.0) 07/06/17 05:05 HOSPITAL COURSE: Date of Admission:07/05/17 Date of Discharge: 07/06/17 62 year-old female with a PMH significant for HTN, HLD, and chronic back neck and pain. Placed on observation for chest pain. Atypical chest pain --r/o ACS: troponins neg x 3, third pending; CXR was unremarkable; ECG was not suggestive of acute ischemic event; nuclear stress showed no significant ischemia; continue ASA; follow up with Dr. Mayberry as outpatient --r/o PE: Wells score zero, no indication for further workup Hypertension --BP well-controlled --continued home dose lisinopril 2.5mg daily Hyperlipidemia --on no meds Chronic neck and back pain --held home diclofenac and tizanidine while inpatient Minutes to complete discharge: 35 Discharge Summary Reason For Visit: CHEST PAIN Current Active Problems Chest pain (Acute) Condition: Improved - Instructions Diet, Activity, Other Instructions: You should follow up with Dr. Mayberry, your migratory worker, in 1-2 weeks. Return to the emergency department for any new or worsening symptoms. Referrals: Jayce Gillette MD [Primary Care Provider] - Allie Mayberry MD [Staff Physician] - Disposition: HOME - Home Medications Comprehensive Discharge Medication List: Ambulatory Orders Aspirin [ASA -] 81 mg PO DAILY 11/23/14 Diclofenac Sodium 75 mg PO BID 02/02/17 Tizanidine HCl [Zanaflex] 4 mg PO BID 02/02/17 Epinephrine [Epipen] 0.3 mg IJ PRN #1 auto.injct 08/13/17 Lisinopril [Prinivil] 2.5 mg PO DAILY 04/11/17 This patient is new to me today: No Emergency Visit: Yes ED Registration Date: 07/05/17 Care time: The patient presented to the Emergency Department on the above date and was hospitalized for further evaluation of their emergent condition. Critical Care patient: No - Discharge Referral Referred to [facility] Med [facility] No
[2017-07-06 19:28] VITALS: BP 116/76; PULSE 73; TEMP 98.8
== END 2017-07-06 19:15 | disposition home or self-care (01) ==
LOC: JER 01:20 → JERBED 08:21 → J4W 23:17
PROVIDERS: ADMIT Internal Medicine; ATTEND Nurse Practitioner Acute Care
PROC: 3E013GC Introduction of Other Therapeutic Substance into Subcutaneous Tissue, Percutaneous Approach (ICD-10-PCS; principal; 2017-07-05)
DX: R07.89 Other chest pain (principal); I10 Essential (primary) hypertension; E78.5 Hyperlipidemia, unspecified; M54.2 Cervicalgia; M54.5 Low back pain; G89.29 Other chronic pain; R35.0 Frequency of micturition; Z79.82 Long term (current) use of aspirin; Z91.013 Allergy to seafood
CPT/HCPCS: 36415; 71020-TC; 78452-TC; 80053; 81003; 81015; 82550; 83690; 83735; 83880; 84100; 84443; 84484; 85025; 87086; 93005; 93010; 93017; 96372; 99285-25; A9502; G0378; J1644

== ENCOUNTER 2020-11-30 21:39 | Emergency (ER) | payer OTHER ==
[2020-11-30 22:03] VITALS: BMI 24.0
[2020-11-30] MEDS ORDERED: LACTATED RINGERS SOLUTION 1000 ML INFUS.BAG IV ONE (22:18)
[2020-11-30 22:29] LABS: BASO % 0.9 % (0-2.0); EOS % 2.2 % (0-4.5); HEMATOCRIT 40.6 % (32.4-45.2); HEMOGLOBIN 13.7 GM/dL (10.7-15.3); LYMPH % 33.4 % (8-40); MCHC 33.8 g/dl (32.0-36.0); MEAN CELL VOLUME 88.8 fl (80-96); MONO % 13.8 % (3.8-10.2); NEUT % 49.7 % (42.8-82.8); PLATELET COUNT 205 K/MM3 (134-434); RBC 4.58 M/mm3 (3.60-5.2); RDW 14.5 % (11.6-15.6); WHITE BLOOD COUNT 7.5 K/mm3 (4.0-10.0)
[2020-11-30 22:36] LABS: INR 1.01 (0.83-1.09); PROTHROMBIN TIME (PATIENT) 12.2 SEC (9.7-13.0)
[2020-11-30 22:53] LABS: CHLORIDE 102 mmol/L (98-107); SODIUM 139 mmol/L (136-145)
[2020-11-30 22:55] LABS: ALBUMIN 3.6 g/dl (3.4-5.0)
[2020-11-30 22:56] LABS: ANION GAP 6 MMOL/L (8-16); BLOOD UREA NITROGEN 14.6 mg/dL (7-18); CO2 30 mmol/L (21-32); GLUCOSE,RANDOM 143 mg/dL (74-106)
[2020-11-30 22:59] LABS: SGOT/AST 53 U/L (15-37); SGPT/ALT 72 U/L (13-61)
[2020-11-30 23:00] LABS: BILIRUBIN,TOTAL 0.3 mg/dL (0.2-1); TOT PROT 7.7 g/dl (6.4-8.2)
[2020-11-30 23:01] LABS: ALK PHOS 117 U/L (45-117)
[2020-12-01 03:49] VITALS: BP 131/71; PULSE 81; TEMP 98.2
== END 2020-12-01 04:37 | disposition home or self-care (01) ==
LOC: JER 21:39
DX: R00.2 Palpitations (principal); R74.01 Elevation of levels of liver transaminase levels
CPT/HCPCS: 36415; 71045-TC-FY; 80053; 82550; 84484; 85025; 85610; 93005; 93010; 99285-25

== ENCOUNTER 2023-10-31 22:51 | Emergency (ER) | payer OTHER ==
[2023-10-31 22:56] VITALS: BMI 27.9
[2023-11-01] MEDS ORDERED: ACETAMINOPHEN 325 MG TABLET (FP) ONE (00:24)
[2023-11-01] MEDS: ACETAMINOPHEN 325 MG TABLET (FP) PO ONE (00:29)
[2023-11-01 01:04] VITALS: BP 139/82; PULSE 82; RESP 21; TEMP 97.5
== END 2023-11-01 01:38 | disposition home or self-care (01) ==
LOC: JER 22:51
DX: R51.9 Headache, unspecified (principal); I10 Essential (primary) hypertension
CPT/HCPCS: 93005; 93010; 99283-25

== ENCOUNTER 2025-02-01 00:37 | Emergency (ER) | payer OTHER ==
[2025-02-01 00:53] VITALS: TEMP 98.6; BMI 26.6
[2025-02-01 02:27] VITALS: BP 139/75; PULSE 94; RESP 22
== END 2025-02-01 02:39 | disposition home or self-care (01) ==
LOC: JER 00:37
DX: E86.0 Dehydration (principal); I10 Essential (primary) hypertension
CPT/HCPCS: 93005; 93010; 99283-25